=== PATIENT | female | born 1940 | race Caucasian/White ===

== ENCOUNTER 2020-08-28 20:09 | Inpatient (IN) | payer OTHER, MEDICARE ==
[2020-08-28 20:29] LABS: Absolute Lymphocytes (CBC) 7.2 K/uL (0.7-4.9); Basophils % 0.4 % (0-1.3); Hematocrit 35.3 % (36.0-45.0); Lymphocytes % 31.7 % (15.3-44.8); MPV 10.2 fL (7.6-11.3); RBC Red Blood Cell Count 3.91 M/uL (3.86-4.86)
[2020-08-28 20:42] LABS: Albumin 2.4 g/dL (3.4-5.0); Bilirubin Direct 0.3 mg/dL (0-0.2); Bilirubin Total 0.7 mg/dL (0.2-1.0); Potassium 3.6 mmol/L (3.5-5.1)
[2020-08-28] MEDS ORDERED: NA CHLORIDE 0.9% 1,000 ML ONE (21:04)
[2020-08-28] MEDS ORDERED: ONDANSETRON 4 MG/2 ML VIAL ONE (21:04)
[2020-08-28 21:10] LABS: Blood Morphology Comment NOT SEEN (NOT SEEN); Platelet Estimate ADEQ
--- NOTE | 2020-08-28 21:57 | RAD REPORT ---
EXAM DESCRIPTION: CTAbdomen Pelvis W Contrast - 08/28/2020 9:43 pm CLINICAL HISTORY: Abdominal pain. Abd pain;Nausea / vomiting COMPARISON: CT ABD PELVIS W CONTRAST dated 12/06/2013 TECHNIQUE: Biphasic CT imaging of the abdomen and pelvis was performed with 100 ml non-ionic IV cont rast. All CT scans are performed using dose optimization technique as appropriate and may include automated exposure control or mA/KV adjustment according to patient size. FINDINGS: Multiple solid-appearing left lower lobe of lesions, the largest portion measuring nearly 3.5 centimeters. Interlobular septal thickening and adjacent ground-glass airspace disease is noted. There is some fluid as well. Mild circumferential thickening of distal esophagus and small hiatal her grant. Multiple too small to characterize liver lesions which are statistically benign. These are similar to prior. Cholecystectomy. No adrenal masses. The spleen is within normal limits. No stones or hydronep hrosis. Hysterectomy. No bowel obstruction is identified. No evidence appendicitis. Abdominal aortic atherosclerosis. No retroperitoneal lymphadenopathy. Multilevel degenerative disc disease. No acute fractures are identified. IMPRESSION: 1. No acute intra-abdominal abnormality. 2. Irregular masslike opacities in the left lower lobe could reflect either pneumonia or neoplasm. Co nsider dedicated imaging of the chest.
[2020-08-28] MEDS ORDERED: NA CHLORIDE 0.9% 500 ML ONE (21:59)
[2020-08-28] MEDS ORDERED: PIPERACIL/TAZO 3.375 GM VIAL IV ONE (21:59)
[2020-08-28] MEDS ORDERED: MORPHINE 4 MG/ML SYR ONE (21:59)
[2020-08-28 22:11] LABS: Urine Blood 2+ (Negative); Urine Glucose Negative (Negative); Urine Protein 2+ (Negative); Urine Specific Gravity 1.025 (1.005-1.030)
--- NOTE | 2020-08-29 00:24 | ER ---
Nurse's Notes [facility] Name: Rachel Fenton Age: 79 yrs Sex: Female : 1940 Arrival Date: 08/28/2020 Time: 20:10 Bed 26 Private MD: Diagnosis: Abdominal pain, Generalized;Nausea;Pneumonia Presentation: 08/28 20:10 Chief complaint: EMS states: nausea x 2 days. received 2nd dose of covid vaccination on zb August 14. patient states she hasn't felt right ever since. denies fever, chills, diarrhea, abdominal pain. Coronavirus screen: At this time, the client does not indicate any symptoms associated with coronavirus-19. Ebola Screen: No symptoms or risks identified at this time. Initial Sepsis Screen: Does the patient meet any 2 criteria? No. Patient's initial sepsis screen is negative. Does the patient have a suspected source of infection? No. Patient's initial sepsis screen is negative. Risk Assessment: Do you want to hurt yourself or someone else? Patient reports no desire to harm self or others. Onset of symptoms was August 26, 2020. 20:10 Method Of Arrival: EMS: [facility] zb 20:10 Acuity: BORIS 3 zb Historical: - Allergies: 20:13 refampin; zb 20:13 Zithromax; zb - Home Meds: 20:13 atorvastatin 20 mg Oral tab 1 tab once daily [Active]; Cymbalta 60 mg Oral cpDR 1 cap zb once daily [Active]; levothyroxine 150 mcg tab 1 tab once daily [Active]; montelukast 10 mg Oral tab 1 tab once daily [Active]; Neurontin 600 mg Oral tab 1 tab 3 times per day [Active]; Seroquel 300 mg Oral tab 1 tab once daily [Active]; terbinafine HCl 250 mg Oral tab 1 tab once daily [Active]; Tylenol #3 Oral nightly [Active]; Xanax 1 mg Oral tab 1 tab daily [Active]; Zyrtec 10 mg Oral tab 1 tab once daily [Active]; - PMHx: 20:13 COPD; Hyperlipidemia; Hypothyroidism; zb - PSHx: 20:13 Appendectomy; Cholecystectomy; zb - Immunization history:: Adult Immunizations up to date, Client reports receiving the 2nd dose of the Covid vaccine, Date received: August 14, 2020. - Social history:: Smoking status: unknown. Screenin:12 Abuse screen: Denies threats or abuse. Nutritional screening: No deficits noted. ea Tuberculosis screening: No symptoms or risk factors identified. Fall Risk IV access (20 points). Assessment: 20:12 General: Appears uncomfortable, Behavior is appropriate for age. Pain: Denies pain. ea Neuro: Level of Consciousness is awake, alert, obeys commands, Oriented to person, place, time. Respiratory: Airway is patent Respiratory effort is even, unlabored, Respiratory pattern is regular, symmetrical. Derm: Skin is pink, warm \T\ dry. 21:46 Reassessment: Pt in CT. ea 23:33 Reassessment: Patient and/or family updated on plan of care and expected duration. Pain ea level reassessed. Patient is alert, oriented x 3, equal unlabored respirations, skin warm/dry/pink. 08/29 00:33 Reassessment: Patient and/or family updated on plan of care and expected duration. Pain ea level reassessed. Patient is alert, oriented x 3, equal unlabored respirations, skin warm/dry/pink. 01:00 Reassessment: Patient and/or family updated on plan of care and expected duration. Pain ea level reassessed. Patient is alert, oriented x 3, equal unlabored respirations, skin warm/dry/pink. 02:08 Reassessment: Patient and/or family updated on plan of care and expected duration. Pain ea level reassessed. Patient is alert, oriented x 3, equal unlabored respirations, skin warm/dry/pink. Pt admitted to ED hold. Vital Signs: 08/28 20:10 BP 141 / 62; Pulse 96; Resp 18; Temp 99.5; Pulse Ox 94% on R/A; Pain 0/10; zb 23:11 BP 144 / 69; Pulse 80; Resp 19; Pulse Ox 99% ; ea 08/29 02:10 Weight 77.11 kg; ea ED Course: 08/28 20:10 Patient arrived in ED. zb 20:12 Tia Harden, RN is Primary Nurse. ea 20:12 Inserted saline lock: 20 gauge in right antecubital area, using aseptic technique. ea Blood collected. 20:12 Patient has correct armband on for positive identification. Bed in low position. Call ea light in reach. Side rails up X2. 20:13 Triage completed. zb 20:13 Shahbaz Domingo MD is Attending Physician. mh7 21:43 CT Abd/Pelvis - IV Contrast Only In Process Unspecified. EDMS 22:56 Chest Single View XRAY In Process Unspecified. EDMS 08/29 00:23 Doyle Vogel MD is Hospitalizing Provider. 7 00:[address] In Process Unspecified. EDMS 02:07 No provider procedures requiring assistance completed. Patient admitted, IV remains in ea place. Administered Medications: 08/28 20:45 Drug: NS 0.9% 1000 ml Route: IV; Rate: 1000 ml; Site: right antecubital; 08/29 02:09 Follow up: IV Status: Completed infusion; IV Intake: 1000ml ea 08/28 20:45 Drug: Zofran (Ondansetron) 4 mg Route: IVP; Site: right antecubital; 08/29 02:09 Follow up: Response: No adverse reaction 08/28 21:57 Drug: morphine 4 mg Route: IVP; Site: right antecubital; ea 08/29 02:09 Follow up: Response: No adverse reaction 08/28 21:57 Drug: Zosyn (piperacillin-tazobactam) 3.375 grams Route: IVPB; Infused Over: 60 mins; ea Site: right antecubital; 23:00 Follow up: Response: No adverse reaction; IV Status: Completed infusion; IV Intake: ea 100ml 08/29 02:33 Drug: Acetadote (acetylcysteine) 150 mg/kg Route: IV; Rate: calculated rate; Site: ea right antecubital; 05:27 Drug: Acetylcysteine 100 mg/kg {Note: Administered with D5W 1L per Juan Leigh NP.} jb4 Route: IV; Rate: calculated rate; Site: right antecubital; Intake: 08/28 23:00 IV: 100ml; Total: 100ml. ea 08/29 02:09 IV: 1000ml; Total: 1100ml. ea Outcome: 00:24 Decision to Hospitalize by Provider. 7 02:07 Admitted to ER Hold. [facility]. ea 02:07 Condition: stable 02:07 Instructed on the need for admit, Demonstrated understanding of instructions. 09:02 Patient left the ED. bp Signatures: Dispatcher [employer] Milan Arriaga, RN RN jb4 Tia Harden RN Pierre Bang ea RN RN Shahbaz Urbina MD MD mh7 Tierra Loyola RN PAUL zb
--- NOTE | 2020-08-29 00:24 | EDPHYS ---
Physician Documentation [facility] Name: Rachel Fenton Age: 79 yrs Sex: Female : 1940 Arrival Date: 08/28/2020 Time: 20:10 Bed 26 Private MD: MILES Physician Shahbaz Domingo HPI: 08/28 21:10 This 79 yrs old Female presents to ER via EMS with complaints of Nausea. mh7 21:10 The patient presents to the emergency department with nausea, that is moderate. mh7 21:10 Onset: The symptoms/episode began/occurred 2 day(s) ago. mh7 21:10 Possible causes: unknown. The symptoms are aggravated by food , The symptoms are mh7 alleviated by nothing. Associated signs and symptoms: Pertinent positives: diarrhea, nausea, Pertinent negatives: abdominal pain, anorexia, belching, constipation, dysuria, fever, flatulence, GI bleeding, hematuria, vaginal discharge, vomiting. Severity of symptoms: At their worst the symptoms were moderate yesterday, in the emergency department the symptoms are unchanged. Historical: - Allergies: 20:13 refampin; zb 20:13 Zithromax; zb - Home Meds: 20:13 atorvastatin 20 mg Oral tab 1 tab once daily [Active]; Cymbalta 60 mg Oral cpDR 1 cap zb once daily [Active]; levothyroxine 150 mcg tab 1 tab once daily [Active]; montelukast 10 mg Oral tab 1 tab once daily [Active]; Neurontin 600 mg Oral tab 1 tab 3 times per day [Active]; Seroquel 300 mg Oral tab 1 tab once daily [Active]; terbinafine HCl 250 mg Oral tab 1 tab once daily [Active]; Tylenol #3 Oral nightly [Active]; Xanax 1 mg Oral tab 1 tab daily [Active]; Zyrtec 10 mg Oral tab 1 tab once daily [Active]; - PMHx: 20:13 COPD; Hyperlipidemia; Hypothyroidism; zb - PSHx: 20:13 Appendectomy; Cholecystectomy; zb - Immunization history:: Adult Immunizations up to date, Client reports receiving the 2nd dose of the Covid vaccine, Date received: August 14, 2020. - Social history:: Smoking status: unknown. ROS: 21:10 Constitutional: Negative for fever, chills, and weight loss, Eyes: Negative for injury, mh7 pain, redness, and discharge, ENT: Negative for injury, pain, and discharge, Neck: Negative for injury, pain, and swelling, Cardiovascular: Negative for chest pain, palpitations, and edema, Respiratory: Negative for shortness of breath, cough, wheezing, and pleuritic chest pain, Back: Negative for injury and pain, : Negative for injury, bleeding, discharge, and swelling, MS/Extremity: Negative for injury and deformity, Skin: Negative for injury, rash, and discoloration, Neuro: Negative for headache, weakness, numbness, tingling, and seizure, Psych: Negative for depression, anxiety, suicide ideation, homicidal ideation, and hallucinations, Allergy/Immunology: Negative for hives, rash, and allergies, Endocrine: Negative for neck swelling, polydipsia, polyuria, polyphagia, and marked weight changes, Hematologic/Lymphatic: Negative for swollen nodes, abnormal bleeding, and unusual bruising. Exam: 21:10 Constitutional: This is a well developed, well nourished patient who is awake, alert, mh7 and in no acute distress. Head/Face: Normocephalic, atraumatic. Eyes: Pupils equal round and reactive to light, extra-ocular motions intact. Lids and lashes normal. Conjunctiva and sclera are non-icteric and not injected. Cornea within normal limits. Periorbital areas with no swelling, redness, or edema. Neck: Trachea midline, no thyromegaly or masses palpated, and no cervical lymphadenopathy. Supple, full range of motion without nuchal rigidity, or vertebral point tenderness. No Meningismus. Chest/axilla: Normal chest wall appearance and motion. Nontender with no deformity. No lesions are appreciated. Cardiovascular: Regular rate and rhythm with a normal S1 and S2. No gallops, murmurs, or rubs. Normal PMI, no JVD. No pulse deficits. 21:10 Back: No spinal tenderness. No costovertebral tenderness. Full range of motion. Skin: Warm, dry with normal turgor. Normal color with no rashes, no lesions, and no evidence of cellulitis. MS/ Extremity: Pulses equal, no cyanosis. Neurovascular intact. Full, normal range of motion. Neuro: Awake and alert, GCS 15, oriented to person, place, time, and situation. Cranial nerves II-XII grossly intact. Motor strength 5/5 in all extremities. Sensory grossly intact. Cerebellar exam normal. Normal gait. Psych: Awake, alert, with orientation to person, place and time. Behavior, mood, and affect are within normal limits. 21:10 Respiratory: the patient does not display signs of respiratory distress, Respirations: normal, Breath sounds: rhonchi, that are mild, are scattered, Respiratory rate: 18 21:10 Abdomen/GI: Inspection: abdomen appears normal, obese Bowel sounds: normal, in all quadrants, Palpation: moderate abdominal tenderness, in all quadrants, mass, is not appreciated, rebound tenderness, is not appreciated, voluntary guarding, is not appreciated, involuntary guarding, is not appreciated, no appreciated organomegaly, Rectal exam: the exam is deferred, because of patient request, Indicators: McBurney's point is not tender, Bergman's sign is negative, Rovsing's sign is negative, Obturator sign is negative, Psoas sign is negative, Liver: no appreciated palpable abnormalities, Hernia: not appreciated. Vital Signs: 20:10 BP 141 / 62; Pulse 96; Resp 18; Temp 99.5; Pulse Ox 94% on R/A; Pain 0/10; zb 23:11 BP 144 / 69; Pulse 80; Resp 19; Pulse Ox 99% ; ea 08/29 02:10 Weight 77.11 kg; ea MDM: 00:20 Differential diagnosis: Nonspecific abd pain, gastritis, pancreatitis, diverticulitis, 7 viral gastroenteritis, gastroenteritis. Data reviewed: vital signs, nurses notes, lab test result(s), CBC, electrolytes, urinalysis, EKG, radiologic studies, CT scan, plain films. Data interpreted: Pulse oximetry: on room air is 99 %. Interpretation: normal. Counseling: I had a detailed discussion with the patient and/or guardian regarding: the historical points, exam findings, and any diagnostic results supporting the discharge/admit diagnosis, the presence of at least one elevated blood pressure reading (>120/80) during this emergency department visit, lab results, radiology results, the need for further work-up and treatment in the hospital. Response to treatment: the patient's symptoms have mildly improved after treatment. 00:24 Patient medically screened. [facility] 08/28 20:15 Order name: Basic Metabolic Panel; Complete Time: :05 08/28 20:15 Order name: CBC with Diff; Complete Time: 21:22 08/28 20:15 Order name: Hepatic Function; Complete Time: 21: 08/28 20:15 Order name: Lipase; Complete Time: 21:05 08/28 21:02 Order name: Manual Differential; Complete Time: 21:22 [facility] 08/28 22:10 Order name: Urine Dipstick-Ancillary; Complete Time: 22:44 [facility] 08/29 00:26 Order name: Procalcitonin; Complete Time: 02:08 08/29 00:26 Order name: Blood Culture Adult (2) 08/29 00:26 Order name: CRP; Complete Time: 02:08 08/29 00:26 Order name: Troponin (emerg Dept Use Only); Complete Time: 02:08 08/29 00:26 Order name: Lactate 08/29 00:51 Order name: SARS-COV-2 RT PCR; Complete Time: 02:08 [facility] 08/29 02:10 Order name: Acetaminophen Level [facility] 08/28 21:24 Order name: CT Abd/Pelvis - IV Contrast Only; Complete Time: 22:06 [facility] 08/28 22:07 Order name: Chest Single View XRAY [facility] 08/29 00:26 Order name: Chest Wo Con CT 08/29 03:57 Order name: Urinalysis [facility] 08/29 04:06 Order name: Urine Microscopic Only [facility] 08/29 04:42 Order name: CBC with Automated Diff [facility] 08/29 05:17 Order name: Comprehensive Metabolic Panel [facility] 08/29 05:17 Order name: T4 Free [facility] 08/29 05:17 Order name: Thyroid Stimulating Hormone [facility] 08/29 07:26 Order name: Basic Metabolic Panel [facility] 08/28 20:15 Order name: IV Saline Lock; Complete Time: 20:15 08/28 20:15 Order name: Labs collected and sent; Complete Time: 20:15 08/28 21:24 Order name: Urine Dipstick-Ancillary (obtain specimen); Complete Time: 23:31 [facility] 08/28 21:25 Order name: EKG - Nurse/Tech; Complete Time: 22:16 [facility] Administered Medications: 08/28 20:45 Drug: NS 0.9% 1000 ml Route: IV; Rate: 1000 ml; Site: right antecubital; 08/29 02:09 Follow up: IV Status: Completed infusion; IV Intake: 1000ml 08/28 20:45 Drug: Zofran (Ondansetron) 4 mg Route: IVP; Site: right antecubital; 08/29 02:09 Follow up: Response: No adverse reaction 08/28 21:57 Drug: morphine 4 mg Route: IVP; Site: right antecubital; 08/29 02:09 Follow up: Response: No adverse reaction 08/28 21:57 Drug: Zosyn (piperacillin-tazobactam) 3.375 grams Route: IVPB; Infused Over: 60 mins; ea Site: right antecubital; 23:00 Follow up: Response: No adverse reaction; IV Status: Completed infusion; IV Intake: ea 100ml 08/29 02:33 Drug: Acetadote (acetylcysteine) 150 mg/kg Route: IV; Rate: calculated rate; Site: ea right antecubital; 05:27 Drug: Acetylcysteine 100 mg/kg {Note: Administered with D5W 1L per Juan Leigh NP.} jb4 Route: IV; Rate: calculated rate; Site: right antecubital; Disposition Summary: 08/29/20 00:24 Hospitalization Ordered Hospitalization Status: Inpatient Admission [facility] Provider: Doyle Vogel Condition: Stable [facility] Problem: new 7 Symptoms: have improved mh7 Bed/Room Type: Standard [facility] Location: Telemetry/MedSurg (Inpatient)(08/29/20 07:27) Room Assignment: [facility](08/29/20 07:27) Diagnosis - Abdominal pain, Generalized 7 - Nausea mh7 - Pneumonia mh7 Forms: - Medication Reconciliation Form mh7 - SBAR form 7 Signatures: Dispatcher [employer] EDJuan Lee, CHRIS-Chrissie VALENZUELAP-Cla1 Rina Mosquera RN RN cg Bryson, James, RN RN jb4 Tia Harden RN RN ea Botello, Elizabeth eb Holmes, Maurice, MD MD mh7 Tierra Loyola RN RN zb Corrections: (The following items were deleted from the chart) 08/28 23:37 23:07 CORONAVIRUS+MR.LAB.BRZ ordered. EDMS EDMS 08/29 01:41 00:24 [place]metry/MedSurg ([place]patient) [facility] [place] 00:24 [facility] [place] 07: 01:41 [facility] eb [facility]
[2020-08-29 01:24] LABS: Troponin (Emerg Dept Use Only) < 0.02 ng/mL (0.0-0.045)
--- NOTE | 2020-08-29 02:01 | P.HP ---
Certification for Inpatient Patient admitted to: Inpatient With expected LOS: >2 Midnights Patient will require the following post-hospital care: None Practitioner: I am a practitioner with admitting privileges, knowledge of patient current condition, hospital course, and medical plan of care. Services: Services provided to patient in accordance with Admission requirements found in Title 42 Section 412.3 of the Code of Federal Regulations Patient History Date of Service: 08/29/20 Primary Care Provider: Dr. Vallejo Reason for admission: Pneumonia, Tylenol overdose History of Present Illness: 79-year-old female with history of COPD, hyperlipidemia, hypothyroidism presents the emergency department for shortness of breath, nausea. Patient reports ongoing shortness of breath over the course of the last month or so worsening in the last week as well as nausea. Patient was evaluated in the emergency department, labs were significant for white blood cell count 22.6 hemoglobin 11 point 6D bili 0.3 AST 405 ALT 307 alk phos 197 C-reactive protein 366 procalcitonin 0.37 urinalysis with trace leukocytes Covid test neg ative. ED provider called for admission for pneumonia. When I saw the patient in the emergency room she was awake, alert, oriented x3. Patient was on room air but was slightly tachypneic, dyspneic. Chest x-ray with left-sided pneumonia CT abdomen pelvis with no acute findings but did mention abnormality of the left lung base recommended CT chest. CT chest demonstrates focal area of opacity within the left posterior segment of the left lower lobes findings could correspond to pneumonia but other processes cannot be excluded. Patient also with 3 mm pulmonary nodule in the left lung apex and minimal tree-in-bud distribution and bronchial thickening inferior aspect anterior segment of the right upper lobe which could correspond to infectious or inflammatory process. Patient also admitted to taking between 4 and 5 g of Tylenol daily for many years now patient was coached on need to discontinue use of Tylenol. Poison control was contacted regarding chronic Tylenol toxicity and recommended the use of N-acetylcysteine. Allergies azithromycin [From Zithromax] Allergy (Verified 08/01/15 20:39) Hives/Rash rifampin Allergy (Verified 08/01/15 20:39) Hives/Rash refampin Allergy (Uncoded 08/01/15 21:08) Unknown Home Medications: ALPRAZolam [Xanax*] 1 tab PO DAILY 08/01/15 Atorvastatin Calcium [Lipitor*] 1 tab PO DAILY 08/01/15 Cetirizine HCl [Zyrtec*] 2 tab PO DAILY 08/01/15 Duloxetine [Cymbalta *] 3 tab PO DAILY 08/01/15 Gabapentin [Neurontin*] 6 tab PO TID 08/01/15 Montelukast [Singulair*] 1 tab PO DAILY 08/01/15 Levothyroxine Sodium 1 tab PO DAILY 08/02/15 Albuterol Sulfate [Proair Hfa] 8.5 gm IH TID PRN #1 hfa.[email or web address] 08/04/15 Budesonide/Formoterol Fumarate [Symbicort 160-4.5 Mcg Inhaler] 2 puff IH BID #1 hfa.aer.ad 08/04/15 Codeine/APAP [Tylenol W/Codeine #3 tab] 1 tab PO TID PRN #15 tab 08/04/15 Pantoprazole [Protonix Tab*] 40 mg PO DAILYAC #30 tab 08/04/15 Quetiapine [Seroquel*] 50 mg PO BEDTIME PRN #15 tab 08/04/15 predniSONE [Prednisone*] 20 mg PO BID #15 tab 08/04/15 traMADol HCL [Ultram*] 50 mg PO TID PRN #30 tab 08/04/15 - Past Medical/Surgical History Diabetic: No -: COPD -: GERD with a hiatal hernia -: Memory loss issues -: Tobacco abuse -: Alcohol use -: Tylenol abuse -: Hypothyroidism -: hysterectomy -: cholecystectomy Psychosocial/ Personal History: Patient is , lives with her son, she is retired. - Family History Mother -: Cancer Father -: Cancer - Social History Smoking Status: Former smoker Alcohol use: Yes CD- Drugs: No Caffeine use: No Place of Residence: Home Review of Systems 10-point ROS is otherwise unremarkable Respiratory: Cough, Shortness of Breath Gastrointestinal: Nausea Physical Examination - Physical Exam General: Alert, In no apparent distress, Oriented x3 HEENT: Atraumatic, PERRLA, Mucous membr. moist/pink Neck: Supple, 2+ carotid pulse no bruit, No LAD Respiratory: Normal air movement, Crackles/rales, Rhonchi/gurgles Cardiovascular: No edema, Regular rate/rhythm, Normal S1 S2 Capillary refill: <2 Seconds Gastrointestinal: Normal bowel sounds, No tenderness Musculoskeletal: No tenderness Integumentary: No rashes Neurological: Normal speech, Normal strength at 5/5 x4 extr, Normal tone, Normal affect - Studies Laboratory Data (last 24 hrs) 08/28/20 20:18: WBC 22.60 H*, Hgb 11.6 L, Hct 35.3 L, Plt Count 255 08/28/20 20:18: Sodium 140, Potassium 3.6, BUN 17, Creatinine 0.64, Glucose 98, Total Bilirubin 0.7, AST 405 H*, ALT 307 H*, Alkaline Phosphatase 197 H, Lipase 53 L Assessment and Plan - Plan Assessment: Leukocytosis, shortness of breath secondary to left-sided pneumonia complicated with history of COPD, tobacco abuse Elevated LFTs likely secondary to chronic Tylenol intake 3 mm pulmonary nodule left lung apex Hypertension Hyperlipidemia Hypothyroidism Plan: Leukocytosis, shortness of breath secondary to left-sided pneumonia complicated with history of COPD, tobacco abuse: Patient reports that she quit smoking cigarettes approximately 5 years ago, still vapes daily. Mild expiratory wheezing on exam. Patient allergic to azithromycin will continue with Levaquin, blood cultures, sputum cultures ordered. CT recommends treatment of pneumonia with follow-up imaging to rule out other processes. Pulmonology consulted for additional assistance. We will continue with as needed nebulizer treatments, IV steroids, IV antibiotics, incentive spirometry, daily room air saturations and supplemental oxygen as needed. Elevated LFTs likely secondary to chronic Tylenol intake: Patient admits to taking between 4 and 5 g of Tylenol on a daily basis, when asked for what reason she reports that she just always has. Case was discussed with poison control and as she has elevated LFTs I did recommend treatment with N-acetylcysteine which has been initiated in the emergency department. Will trend LFTs, patient with previous cholecystectomy denies any abdominal pain. Will obtain ultrasound of the liver tomorrow. Patient coached on need for cessation of Tylenol. 3 mm pulmonary nodule left lung apex: Patient made aware, will need follow-up. Hypertension: Obtain and continue home medications Hyperlipidemia: We will need to hold any statins given elevated LFTs Hypothyroidism: Continue medications DVT PPX: Lovenox Code status: Full Discharge Plan: Home Plan to discharge in: Greater than 2 days - Advance Directives Does patient have a Living Will: No Does patient have a Durable POA for Healthcare: No - Code Status/Comfort Care Code Status Assessed: Yes (Full code) Critical Care: No Time Spent Managing Pts Care (In Minutes): 55
[2020-08-29] MEDS ORDERED: MORPHINE 2 MG/ML SYR IV PRN (02:32)
[2020-08-29] MEDS ORDERED: ALBUTEROL 2.5 MG/3 ML NEB SOL NEB PRN (02:32)
[2020-08-29] MEDS ORDERED: ONDANSETRON 4 MG/2 ML VIAL IV PRN (02:32)
[2020-08-29] MEDS ORDERED: IPRATROPIUM BROM 0.5MG/2.5ML NEB PRN (02:32)
[2020-08-29] MEDS ORDERED: Acetylcysteine 6000mg/30mL IV ONE (02:38)
[2020-08-29] MEDS ORDERED: NA CHLORIDE 0.9% 250 ML ONE (02:40)
[2020-08-29 03:00] VITALS: BMI 26.6
[2020-08-29] MEDS ORDERED: Levofloxacin500mg IV 500 MG/100 ML BAG IV SCH (03:00)
[2020-08-29 03:55] LABS: Urine Appearance CLEAR (Clear); Urine Bilirubin NEGATIVE (Negative); Urine Blood 2+ (Negative); Urine Color YELLOW (Yellow); Urine Glucose NEGATIVE (Negative); Urine Protein 2+ (Negative); Urine Specific Gravity >=1.030 (1.005-1.030)
[2020-08-29 03:57] LABS: Urine Microscopic Reflex ORDER UMIC
[2020-08-29 04:05] LABS: Urine Bacteria 20-50 /HPF (<20); Urine Mucus 2+ /HPF (NONE SEEN)
[2020-08-29] MEDS ORDERED: Levofloxacin500mg IV 500 MG/100 ML BAG IV ONE (04:16)
[2020-08-29 04:32] LABS: Basophils % 0.3 % (0-1.3); Hematocrit 34.6 % (36.0-45.0); Lymphocytes % 30.1 % (15.3-44.8); MPV 9.7 fL (7.6-11.3); RBC Red Blood Cell Count 3.75 M/uL (3.86-4.86)
--- NOTE | 2020-08-29 04:50 | RAD REPORT ---
EXAM DESCRIPTION: Vladimir Single View08/28/2020 10:56 pm CLINICAL HISTORY: Cough COMPARISON: 2016 FINDINGS: Left lower lobe consolidation. Right lung appears clear acute infiltrate. Lungs are hyperaerated The heart is normal size IMPRESSION: Left lower lobe consolidation consistent pneumonia. This should be followed until it is clear to help exclude post obstructive process/underlying mass
[2020-08-29 05:16] LABS: Albumin 2.2 g/dL (3.4-5.0); Bilirubin Total 0.6 mg/dL (0.2-1.0); Potassium 3.3 mmol/L (3.5-5.1); Protein, Total 6.6 g/dL (6.4-8.2); Thyroid Stimulating Hormone 0.998 uIU/mL (0.360-3.740)
[2020-08-29] MEDS ORDERED: ACETYLCYST 6,000 MG/30 ML VIAL ONE (05:28)
[2020-08-29] MEDS ORDERED: D5W 1,000 ML IV ONE (05:29)
--- NOTE | 2020-08-29 06:06 | P.PN ---
Subjective Date of Service: 08/29/20 Primary Care Provider: Dr. Vallejo Chief Complaint: Pneumonia, Tylenol overdose Subjective: Other (Patient currently on 2 L per nasal cannula. Patient desires to go home. Still with some mild shortness of breath) Physical Examination - Studies Laboratory Data (last 24 hrs) 08/28/20 20:18: WBC 22.60 H*, Hgb 11.6 L, Hct 35.3 L, Plt Count 255 08/28/20 20:18: Sodium 140, Potassium 3.6, BUN 17, Creatinine 0.64, Glucose 98, Total Bilirubin 0.7, AST 405 H*, ALT 307 H*, Alkaline Phosphatase 197 H, Lipase 53 L Assessment & Plan Discharge Plan: Home Plan to discharge in: Greater than 2 days Physician Review Additional Text: COVID: Negative CXR: COMPARISON: 2015 FINDINGS: Left lower lobe consolidation. Right lung appears clear acute infiltrate. Lungs are hyperaerated The heart is normal size IMPRESSION: Left lower lobe consolidation consistent pneumonia. CT scan AB: COMPARISON: CT ABD PELVIS W CONTRAST dated 12/06/2013 TECHNIQUE: Biphasic CT imaging of the abdomen and pelvis was performed with 100 ml non-ionic IV contrast. All CT scans are performed using dose optimization technique as appropriate and may include automated exposure control or mA/KV adjustment according to patient size. FINDINGS: Multiple solid-appearing left lower lobe of lesions, the largest portion measuring nearly 3.5 centimeters. Interlobular septal thickening and adj acent ground-glass airspace disease is noted. There is some fluid as well. Mild circumferential thickening of distal esophagus and small hiatal hernia. Multiple too small to characterize liver lesions which are statistically benign. These are similar to prior. Cholecystectomy. No adrenal masses. The spleen is within normal limits. No stones or hydronephrosis. Hysterectomy. No bowel obstruction is identified. No evidence appendicitis. Abdominal aortic atherosclerosis. No retroperitoneal lymphadenopathy. Multilevel degenerative disc disease. No acute fractures are identified. IMPRESSION: 1. No acute intra-abdominal abnormality. 2. Irregular masslike opacities in the left lower lobe could reflect either pneumonia or neoplasm. ABUS: Pending CT chest: Final results pending Physical exam: General: Alert, In no apparent distress, Oriented x3, some anxiety noted HEENT: Atraumatic, PERRLA, Mucous membr. moist/pink Neck: Supple, 2+ carotid pulse no bruit, No LAD Respiratory: Crackles with decreased breath sounds to the left base Cardiovascular: No edema, Regular rate/rhythm, Normal S1 S2 Capillary refill: <2 Seconds Gastrointestinal: Normal bowel sounds, No tenderness Musculoskeletal: No tenderness Integumentary: No rashes Neurological: Normal speech, Normal strength at 5/5 x4 extr, Normal tone, Normal affect. Patient appropriate. Some anxiety noted. Impression: Leukocytosis, shortness of breath secondary to left-sided pneumonia complicated with history of COPD, UTI and tobacco abuse Elevated LFTs likely secondary to chronic Tylenol intake and other medications including Lipitor and terbinafine 3 mm pulmonary nodule left lung apex Hyperlipidemia Hypothyroidism Depression with anxiety Tobacco abuse Plan: Leukocytosis, shortness of breath secondary to left-sided pneumonia complicated with COPD exacerbation, UTI and tobacco abuse: Continue IV Levaquin. Blood and urine cultures pending. Will start IV Solu-Medrol for her COPD. Will also start Brovana. Continue with albuterol and Atrovent. Continue to wean off oxygen. Await CT chest findings. Patient on Lovenox for DVT prophylaxis. Will provide nicotine patch. Encourage incentive spirometer. Patient desires to go home. She is not in any condition to go home. Will try to reach out to family to discuss plan of care. Patient being treated for chronic Tylenol intake. Patient to continue with Mucomyst. Restart medication for anxiety. We will con tinue to monitor closely. Anticipate improvement over the next 72 hours. Elevated LFTs likely secondary to chronic Tylenol intake and other medications including Lipitor and terbinafine: Case discussed with poison control. Due to elevated liver function patient started on Mucomyst. Will continue with Mucomyst treatment. Discontinue Tylenol with codeine, Lipitor, terbinafine. Will monitor liver function test. They appear to be improved. Abdominal ultrasound pending. Will educate on cessation of medications. 3 mm pulmonary nodule left lung apex: Patient made aware, will need follow-up. Await recommendations by pulmonology. Hyperlipidemia: Discontinue Lipitor due to elevated liver function Hypothyroidism: Continue levothyroxine 150 mcg daily Depression with anxiety: Restart Xanax, Cymbalta and Seroquel. Tobacco abuse: We will provide nicotine patch. DVT PPX: Lovenox Code status: Full Discharge Plan: Home at discharge Time Spent Managing Pts Care (In Minutes): 55
[2020-08-29] MEDS ORDERED: QUETIAPINE 100MG TAB PO PRN (06:25)
[2020-08-29] MEDS ORDERED: LEVOTHYROXINE SOD 0.05 MG TABLET PO SCH (07:00)
[2020-08-29 07:26] LABS: Potassium 3.5 mmol/L (3.5-5.1)
[2020-08-29] MEDS: ARFORMOTEROL TARTRATE 15 MCG/2 ML VIAL.NEB NEB SCH ×2 (07:50→19:50)
[2020-08-29] MEDS ORDERED: DEXTROSE 5% IV SCH ×4 (08:00→16:00)
[2020-08-29] MEDS ORDERED: ACETYLCYSTEINE IV SCH ×4 (08:00→16:00)
[2020-08-29] MEDS ORDERED: WATER IV SCH ×4 (08:00→16:00)
[2020-08-29] MEDS ORDERED: ARFORMOTEROL TARTRATE 15 MCG/2 ML VIAL.NEB ONE (08:02)
[2020-08-29] MEDS: ENOXAPARIN 40 MG/0.4 ML SQ SCH (09:50)
[2020-08-29] MEDS: DULOXETINE 30 MG CAP PO SCH (09:51)
[2020-08-29] MEDS: MONTELUKAST 10 MG TAB PO SCH (09:52)
--- NOTE | 2020-08-29 11:06 | RAD REPORT ---
EXAM DESCRIPTION: US - Abdomen Exam Limited - 08/29/2020 8:25 am CLINICAL HISTORY: Elevated liver function test enzymes/abdominal pain COMPARISON: None. FINDINGS: A cholecystectomy has been performed. The biliary tree is normal caliber. The liver has a borderline increased echotexture. Lesion is not seen. A pedal flow IMPRESSION: Cholecystectomy Borderline increased hepatic echotexture equivocal for mild fatty infiltration
[2020-08-29] MEDS: Levofloxacin 750mg IV 750 MG/150 ML BAG IV SCH (11:34)
--- NOTE | 2020-08-29 13:04 | RAD REPORT ---
EXAM DESCRIPTION: CT - Thorax Con - 08/29/2020 6:41 am CLINICAL HISTORY: 79 years, Female, abn CXR COMPARISON: None FINDINGS: Multiple transaxial tomograms of the chest were obtained from the lung apices through the adrenal glands, utilizing 5 mm slice thickness at 5 mm interval reconstruction without the administra tion of IV contrast. Multiplanar reformats in the sagittal and coronal plane were generated and reviewed. This exam was performed according to our departmental dose-optimization protocol, which includes auto mated exposure control, adjustment of the mA and/or kV according to patient size and/or use of iterat mandy reconstruction technique. The lungs parenchyma demonstrate presence of a 3 mm pulmonary nodule left lung apex on image 13. Smal l area of the atelectatic changes superior segment of the left lower lobe and focal area of opacity w ithin the posterior segment of the left lower lobe findings could correspond to pneumonia, other proc esses cannot be excluded, follow-up is recommended after appropriate therapy. At the right lung demonstrate minimal nodularities/tree-in-bud distribution and bronchial thickening inferior aspect anterior segment of the right upper lobe on image 32. The trachea mainstem bronchus demonstrate to be normal. There is no significant pleural and/or perica rdial effusions. The heart is normal in size. There is minimal coronary artery calcifications. The thoracic aorta demonstrate intimal aortic arch calcification. There is subclinical precarinal lymph n ode measuring 8 mm on image 24. No significant major lymphadenopathy could be identified. The axillar y regions demonstrate to be clear. The bone windows demonstrate diffuse bony osteopenia. No signifi cant skeletal lesions are identified. Grossly the unopacified portions of the upper abdomen demonstrate to be within normal limits. IMPRESSION: Small area of atelectatic changes superior segment of the left lower. Focal area of opacity within the posterior segment of the left lower lobe findings could correspond t o pneumonia, other processes cannot be excluded, follow-up is recommended after appropriate therapy. 3 mm pulmonary nodule left lung apex. Minimal nodularities/tree-in-bud distribution and bronchial thickening inferior aspect anterior segme nt of the right upper lobe, findings could correspond to infectious or inflammatory process. Minimal atherosclerotic disease thoracic aorta and coronary arteries. Electronically signed by: Naun Quevedo MD 08/29/2020 1:07 AM CDT Due to temporary technical issues with the PACS/Fluency reporting system, reports are being signed by the in house radiologists without review as a courtesy to insure prompt reporting. The interpreting radiologist is fully responsible for the content of the report.
--- NOTE | 2020-08-29 14:51 | P.CNS ---
Date of Consult: 08/29/20 (TV. Pt agreed to TV) Reason for Consult: LLL pneumonia Primary Care Provider: Dr. Vallejo Chief Complaint: Pneumonia, Tylenol overdose History of Present Illness: Age 79 poor historian AW LLL pneumonia and poss tylenol OD, Wants to go home,c/o nausea Allergies azithromycin [From Zithromax] Allergy (Verified 08/01/15 20:39) Hives/Rash rifampin Allergy (Verified 08/01/15 20:39) Hives/Rash refampin Allergy (Uncoded 08/01/15 21:08) Unknown Home Medications: ALPRAZolam [Xanax*] 1 tab PO DAILY 08/01/15 Atorvastatin Calcium [Lipitor*] 1 tab PO DAILY 08/01/15 Cetirizine HCl [Zyrtec*] 10 mg PO DAILY 08/01/15 Duloxetine [Cymbalta *] 60 mg PO DAILY 08/01/15 Gabapentin [Neurontin*] 600 mg PO TID 08/01/15 Montelukast [Singulair*] 1 tab PO DAILY 08/01/15 Levothyroxine Sodium 1 tab PO DAILY 08/02/15 Codeine/APAP [Tylenol W/Codeine #3 tab] 1 tab PO TID PRN #15 tab 08/04/15 Quetiapine [Seroquel*] 300 mg PO BEDTIME PRN 08/29/20 terbinafine HCL [Terbinafine HCl] 250 mg PO DAILY 08/29/20 - Past Medical/Surgical History Diabetic: No -: COPD -: GERD with a hiatal hernia -: Memory loss issues -: Tobacco abuse -: Alcohol use -: Tylenol abuse -: Hypothyroidism -: hysterectomy -: cholecystectomy Psychosocial/ Personal History: Patient is , lives with her son, she is retired. - Family History Mother Medical History: Cancer Father Medical History: Cancer - Social History Smoking Status: Unknown if ever smoked Alcohol use: No CD- Drugs: No Caffeine use: Yes Place of Residence: Home Review of Systems Genitourinary: Dysuria Physical Examination Temp Pulse Resp BP Pulse Ox 97.6 F 89 18 124/60 94 08/29/20 12:00 08/29/20 12:00 08/29/20 12:00 08/29/20 12:00 08/29/20 12:00 Laboratory Data (last 24 hrs) 08/28/20 20:18: WBC 22.60 H*, Hgb 11.6 L, Hct 35.3 L, Plt Count 255 08/28/20 20:18: Sodium 140, Potassium 3.6, BUN 17, Creatinine 0.64, Glucose 98, Total Bilirubin 0.7, AST 405 H*, ALT 307 H*, Alkaline Phosphatase 197 H, Lipase 53 L - Problems (1) Pneumonia Current Visit: Yes Status: Acute Plan: PT AW LLL pneumonia, DC Change to Levaquin PO/ labs reviewed/ check daily RA pulse OX, once LFT have improved poss DC home after completion of mucomyst and levaquin/ CT rev Qualifiers: Pneumonia type: due to unspecified organism Laterality: left (2) Abnormal LFTs Current Visit: Yes Status: Acute Plan: Poss Tyelonol toxicity Vs sepsis/ CW mucomyst/ LFT improving/ VS stable.US mild fatty liver
[2020-08-29] MEDS ORDERED: METHYLPREDNISOLONE 40 MG INJ IV SCH (17:00)
[2020-08-29] MEDS: FAMOTIDINE 20 MG TAB PO SCH (20:32)
[2020-08-29] MEDS ORDERED: POTASSIUM CL SA 10 MEQ TAB PO ONE (21:00)
[2020-08-30] MEDS: ALPRAZOLAM 1 MG TABLET PO PRN ×2 (00:19→22:32)
[2020-08-30] MEDS: LEVOTHYROXINE SOD 0.075 MG TAB PO SCH (05:52)
[2020-08-30 05:54] LABS: Basophils % 0.4 % (0-1.3); Lymphocytes % 39.6 % (15.3-44.8); MPV 9.7 fL (7.6-11.3); RBC Red Blood Cell Count 3.75 M/uL (3.86-4.86)
--- NOTE | 2020-08-30 05:55 | P.PN ---
Subjective Date of Service: 08/30/20 Primary Care Provider: Dr. Vallejo Chief Complaint: Pneumonia, Tylenol overdose Subjective: Improving, Other (Currently on 1 L per nasal cannula.) Physical Examination - Vital Signs Temperature: 98.4 F Blood Pressure: 120/55 Pulse: 62 Respirations: 16 Pulse Ox (%): 98 Assessment & Plan Discharge Plan: Home Plan to discharge in: 48 Hours Physician Review Additional Text: COVID: Negative CXR: COMPARISON: 2015 FINDINGS: Left lower lobe consolidation. Right lung appears clear acute infiltrate. Lungs are hyperaerated The heart is normal size IMPRESSION: Left lower lobe consolidation consistent pneumonia. CT scan AB: COMPARISON: CT ABD PELVIS W CONTRAST dated 12/06/2013 TECHNIQUE: Biphasic CT imaging of the abdomen and pelvis was performed with 100 ml non-ionic IV contrast. All CT scans are performed using dose optimization technique as appropriate and may include automated exposure control or mA/KV adjustment according to patient size. FINDINGS: Multiple solid-appearing left lower lobe of lesions, the largest portion measuring nearly 3.5 centimeters. Interlobular septal thickening and adjacent ground-glass airspace disease is noted. There is some fluid as well. Mild circumferential thickening of distal esophagus and small hiatal hernia. Multiple too small to characterize liver lesions which are statistically benign. These are similar to prior. Cholecystectomy. No adrenal masses. The spleen is within normal limits. No stones or hydronephrosis. Hysterectomy. No bowel obstruction is identified. No evidence appendicitis. Abdominal aortic atherosclerosis. No retroperitoneal lymphadenopathy. Multilevel degenerative disc disease. No acute fractures are identified. IMPRESSION: 1. No acute intra-abdominal abnormality. 2. Irregular masslike opacities in the left lower lobe could reflect either pneumonia or neoplasm. ABUS: COMPARISON: None. FINDINGS: A cholecystectomy has been performed. The biliary tree is normal caliber. The liver has a borderline increased echotexture. Lesion is not seen. A pedal flow IMPRESSION: Cholecystectomy Borderline increased hepatic echotexture equivocal for mild fatty infiltration CT chest: COMPARISON: None FINDINGS: Multiple transaxial tomograms of the chest were obtained from the lung apices through the adrenal glands, utilizing 5 mm slice thickness at 5 mm interval reconstruction without the administration of IV contrast. Multiplanar reformats in the sagittal and coronal plane were generated and reviewed. This exam was performed according to our departmental dose-optimization protocol, which includes automated exposure control, adjustment of the mA and/or kV according to patient size and/or use of iterative reconstruction technique. The lungs parenchyma demonstrate presence of a 3 mm pulmonary nodule left lung apex on image 13. Small area of the atelectatic changes superior segment of the left lower lobe and focal area of opacity within the posterior segment of the left lower lobe findings could correspond to pneumonia, other processes cannot be excluded, follow-up is recommended after appropriate therapy. At the right lung demonstrate minimal nodularities/tree-in-bud distribution and bronchial thickening inferior aspect anterior segment of the right upper lobe on image 32. The trachea mainstem bronchus demonstrate to be normal. There is no significant pleural and/or pericardial effusions. The heart is normal in size. There is minimal coronary artery calcifications. The thoracic aorta demonstrate intimal aortic arch calcification. There is subclinical precarinal lymph node measuring 8 mm on image 24. No significant major lymphadenopathy could be identified. The axillary regions demonstrate to be clear. The bone windows demonstrate diffuse bony osteopenia. No significant skeletal lesions are identified. Grossly the unopacified portions of the upper abdomen demonstrate to be within normal limits. IMPRESSION: Small area of atelectatic changes superior segment of the left lower. Focal area of opacity within the posterior segment of the left lower lobe findings could correspond to pneumonia, other processes cannot be excluded, follow-up is recommended after appropriate therapy. 3 mm pulmonary nodule left lung apex. Minimal nodularities/tree-in-bud distribution and bronchial thickening inferior aspect anterior segment of the right upper lobe, findings could correspond to infectious or inflammatory process. Minimal atherosclerotic disease thoracic aorta and coronary arteries. Follow up CXR: COMPARISON: Chest Single View dated 08/28/2020; Chest Pa And Lat (2 Views) dated 09/02/2015; Chest Pa And Lat (2 Views) dated 08/02/2015; Chest Single View dated 08/01/2015; Thorax Wo Con dated 08/29/2020; Abdomen Pelvis W Contrast dated 08/28/2020 FINDINGS: Persistent ill-defined airspace disease in the left lung base. The heart size is within normal limits.No acute osseous abnormality. No significant pleural effusions or pneumothorax. Atherosclerosis for IMPRESSION: Left lower lobe consolidative airspace disease concerning for pneumonia is similar to 08/28/2020. Other processes not excluded and continued radiographic or CT follow-up is recommended to ensure resolution Physical exam: General: Alert, In no apparent distress, Oriented x3, some anxiety noted HEENT: Atraumatic, PERRLA, Mucous membr. moist/pink Neck: Supple, 2+ carotid pulse no bruit, No LAD Respiratory: Crackles with decreased breath sounds to the left base but overall improved. Currently on 1 L per nasal cannula Cardiovascular: No edema, Regular rate/rhythm, Normal S1 S2 Capillary refill: <2 Seconds Gastrointestinal: Normal bowel sounds, No tenderness Musculoskeletal: No tenderness Integumentary: No rashes Neurological: Normal speech, Normal strength at 5/5 x4 extr, Normal tone, Normal affect. Patient appropriate. Some anxiety noted. Impression: Leukocytosis, shortness of breath secondary to left-sided pneumonia complicated with history of COPD, UTI and tobacco abuse Elevated LFTs likely secondary to chronic Tylenol intake and other medications including Lipitor and terbinafine 3 mm pulmonary nodule left lung apex Hyperlipidemia Hypothyroidism Depression with anxiety Tobacco abuse Plan: Leukocytosis, shortness of breath secondary to left-sided pneumonia complicated with COPD exacerbation, UTI and tobacco abuse: Patient reports improvement. Continue IV Levaquin. Blood and urine cultures pending. Pulmonology recommended to discontinue Solu-Medrol yesterday. Continue with COPD treatment including Brovana, albuterol, Atrovent. Continue to wean off oxygen. DVT prophylaxis in place. Will follow chest x-ray, lab. LFTs reviewed. Poison control recommends to continue another round of Mucomyst. We will continue with this as recommended. Will monitor liver function tests closely. Case discussed with son. Anticipate continued improvement over the next 72 hours. I will turn the service over to the hospitalist team tomorrow. I will go over the plan of care with him Elevated LFTs likely secondary to chronic Tylenol intake and other medications including Lipitor and terbinafine: Patient has received Mucomyst. Nurse reports poison control recommends another round of Mucomyst. This will be provided. Continue to monitor liver function test closely. Tylenol with codeine, Lipitor and terbinafine has been discontinued. Will monitor closely. Will educate patient. 3 mm pulmonary nodule left lung apex: Patient made aware, will need follow-up. Await recommendations by pulmonology. Hyperlipidemia: Lipitor has been discontinued. Hypothyroidism: Continue levothyroxine 150 mcg daily Depression with anxiety: Continue Xanax, Cymbalta and Seroquel. Tobacco abuse: Continue nicotine patch. DVT PPX: Lovenox Code status: Full Discharge Plan: Home at discharge Time Spent Managing Pts Care (In Minutes): 55
[2020-08-30 06:36] LABS: Alkaline Phosphatase 191 U/L (45-117); BUN Blood Urea Nitrogen 11 mg/dL (7-18); Bicarbonate 29 mmol/L (21-32); Bilirubin Total 0.4 mg/dL (0.2-1.0); Glucose Level 97 mg/dL (74-106); Magnesium 1.7 mg/dL (1.8-2.4); Potassium 3.2 mmol/L (3.5-5.1); Protein, Total 6.1 g/dL (6.4-8.2); Sodium Level 141 mmol/L (136-145)
[2020-08-30 06:37] LABS: ALT/SGPT 337 U/L (12-78); AST/SGOT 337 U/L (15-37)
--- NOTE | 2020-08-30 07:39 | RAD REPORT ---
EXAM DESCRIPTION: RAD - Chest Single View - 08/30/2020 6:49 am CLINICAL HISTORY: eval pneumonia COMPARISON: Chest Single View dated 08/28/2020; Chest Pa And Lat (2 Views) dated 09/02/2015; Chest Pa And Lat (2 Views) dated 08/02/2015; Chest Single View dated 08/01/2015; Thorax Wo Con dated 08/29/2020; Abdomen Pelvis W Contrast dated 08/28/2020 FINDINGS: Persistent ill-defined airspace disease in the left lung base. The heart size is within no rmal limits.No acute osseous abnormality. No significant pleural effusions or pneumothorax. Atheroscl erosis for IMPRESSION: Left lower lobe consolidative airspace disease concerning for pneumonia is similar to . Other processes not excluded and continued radiographic or CT follow-up is recommended to maddy rodriguez
[2020-08-30] MEDS: ARFORMOTEROL TARTRATE 15 MCG/2 ML VIAL.NEB NEB SCH ×2 (07:50→19:20)
[2020-08-30] MEDS ORDERED: MAGNESIUM SULFATE 1 gm IVPB 1 GM/100 ML BAG IV ONE (09:00)
[2020-08-30] MEDS ORDERED: POTASSIUM CL SA 10 MEQ TAB PO ONE ×2 (09:00→21:00)
[2020-08-30] MEDS: Levofloxacin 750mg IV 750 MG/150 ML BAG IV SCH (10:54)
[2020-08-30] MEDS: FAMOTIDINE 20 MG TAB PO SCH ×2 (10:55→20:56)
[2020-08-30] MEDS: ENOXAPARIN 40 MG/0.4 ML SQ SCH (10:55)
[2020-08-30] MEDS: THIAMINE HCL 100 MG TABLET PO SCH (10:55)
[2020-08-30] MEDS: DULOXETINE 30 MG CAP PO SCH (10:56)
[2020-08-30] MEDS: MONTELUKAST 10 MG TAB PO SCH (10:56)
[2020-08-30] MEDS: FOLIC ACID 1 MG TABLET PO SCH (10:56)
--- NOTE | 2020-08-30 15:21 | P.PN ---
Subjective Date of Service: 08/30/20 Primary Care Provider: Dr. Vallejo Chief Complaint: Well Subjective: Improving (Condition stable/ improving. WBC declining) Physical Examination - Vital Signs Temperature: 98.7 F Blood Pressure: 136/66 Pulse: 93 Respirations: 20 Pulse Ox (%): 94 - Studies Microbiology Data (last 24 hrs): 08/28/20 20:32 Blood - Blood Blood Culture Gram Stain - Final 08/28/20 20:12 Blood - Blood Gram Stain - Final 08/28/20 20:12 Blood - Blood Gram Stain - Final Assessment & Plan - Problems (Diagnosis) (1) Pneumonia Current Visit: Yes Status: Acute Plan: Improving WBC declining/ Culture non diagnostic so far. WBC declining/ VS stable/ plan for dc am on levaquin/ rA sat satisfactory Qualifiers: Pneumonia type: due to unspecified organism Laterality: left (2) Abnormal LFTs Current Visit: Yes Status: Acute Plan: LFT no sig change Physician Review Additional Text: COVID: Negative CXR: COMPARISON: 2015 FINDINGS: Left lower lobe consolidation. Right lung appears clear acute infiltrate. Lungs are hyperaerated The heart is normal size IMPRESSION: Left lower lobe consolidation consistent pneumonia. CT scan AB: COMPARISON: CT ABD PELVIS W CONTRAST dated 12/06/2013 TECHNIQUE: Biphasic CT imaging of the abdomen and pelvis was performed with 100 ml non-ionic IV contrast. All CT scans are performed using dose optimization technique as appropriate and may include automated exposure control or mA/KV adjustment according to patient size. FINDINGS: Multiple solid-appearing left lower lobe of lesions, the largest portion measuring nearly 3.5 centimeters. Interlobular septal thickening and adjacent ground-glass airspace disease is noted. There is some fluid as well. Mild circumferential thickening of distal esophagus and small hiatal hernia. Multiple too small to characterize liver lesions which are statistically benign. These are similar to prior. Cholecystectomy. No adrenal masses. The spleen is within normal limits. No stones or hydronephrosis. Hysterectomy. No bowel obstruction is identified. No evidence appendicitis. Abdominal aortic atherosclerosis. No retroperitoneal lymphadenopathy. Multilevel degenerative disc disease. No acute fractures are identified. IMPRESSION: 1. No acute intra-abdominal abnormality. 2. Irregular masslike opacities in the left lower lobe could reflect either pneumonia or neoplasm. ABUS: COMPARISON: None. FINDINGS: A cholecystectomy has been performed. The biliary tree is normal caliber. The liver has a borderline increased echotexture. Lesion is not seen. A pedal flow IMPRESSION: Cholecystectomy Borderline increased hepatic echotexture equivocal for mild fatty infiltration CT chest: COMPARISON: None FINDINGS: Multiple transaxial tomograms of the chest were obtained from the lung apices through the adrenal glands, utilizing 5 mm slice thickness at 5 mm interval reconstruction without the administration of IV contrast. Multiplanar reformats in the sagittal and coronal plane were generated and reviewed. This exam was performed according to our departmental dose-optimization protocol, which includes automated exposure control, adjustment of the mA and/or kV according to patient size and/or use of iterative reconstruction technique. The lungs parenchyma demonstrate presence of a 3 mm pulmonary nodule left lung apex on image 13. Small area of the atelectatic changes superior segment of the left lower lobe and focal area of opacity within the posterior segment of the left lower lobe findings could correspond to pneumonia, other processes cannot be excluded, follow-up is recommended after appropriate therapy. At the right lung demonstrate minimal nodularities/tree-in-bud distribution and bronchial thickening inferior aspect anterior segment of the right upper lobe on image 32. The trachea mainstem bronchus demonstrate to be normal. There is no significant pleural and/or pericardial effusions. The heart is normal in size. There is minimal coronary artery calcifications. The thoracic aorta demonstrate intimal aortic arch calcification. There is subclinical precarinal lymph node measuring 8 mm on image 24. No significant major lymphadenopathy could be identified. The axillary regions demonstrate to be clear. The bone windows demonstrate diffuse bony osteopenia. No significant skeletal lesions are identified. Grossly the unopacified portions of the upper abdomen demonstrate to be within normal limits. IMPRESSION: Small area of atelectatic changes superior segment of the left lower. Focal area of opacity within the posterior segment of the left lower lobe findings could correspond to pneumonia, other processes cannot be excluded, follow-up is recommended after appropriate therapy. 3 mm pulmonary nodule left lung apex. Minimal nodularities/tree-in-bud distribution and bronchial thickening inferior aspect anterior segment of the right upper lobe, findings could correspond to infectious or inflammatory process. Minimal atherosclerotic disease thoracic aorta and coronary arteries. Follow up CXR: COMPARISON: Chest Single View dated 08/28/2020; Chest Pa And Lat (2 Views) dated 09/02/2015; Chest Pa And Lat (2 Views) dated 08/02/2015; Chest Single View dated 08/01/2015; Thorax Wo Con dated 08/29/2020; Abdomen Pelvis W Contrast dated 08/28/2020 FINDINGS: Persistent ill-defined airspace disease in the left lung base. The heart size is within normal limits.No acute osseous abnormality. No significant pleural effusions or pneumothorax. Atherosclerosis for IMPRESSION: Left lower lobe consolidative airspace disease concerning for pneumonia is similar to 08/28/2020. Other processes not excluded and continued radiographic or CT follow-up is recommended to ensure resolution Physical exam: General: Alert, In no apparent distress, Oriented x3, some anxiety noted HEENT: Atraumatic, PERRLA, Mucous membr. moist/pink Neck: Supple, 2+ carotid pulse no bruit, No LAD Respiratory: Crackles with decreased breath sounds to the left base but overall improved. Currently on 1 L per nasal cannula Cardiovascular: No edema, Regular rate/rhythm, Normal S1 S2 Capillary refill: <2 Seconds Gastrointestinal: Normal bowel sounds, No tenderness Musculoskeletal: No tenderness Integumentary: No rashes Neurological: Normal speech, Normal strength at 5/5 x4 extr, Normal tone, Normal affect. Patient appropriate. Some anxiety noted. Impression: Leukocytosis, shortness of breath secondary to left-sided pneumonia complicated with history of COPD, UTI and tobacco abuse Elevated LFTs likely secondary to chronic Tylenol intake and other medications including Lipitor and terbinafine 3 mm pulmonary nodule left lung apex Hyperlipidemia Hypothyroidism Depression with anxiety Tobacco abuse Plan: Leukocytosis, shortness of breath secondary to left-sided pneumonia complicated with COPD exacerbation, UTI and tobacco abuse: Patient reports improvement. Continue IV Levaquin. Blood and urine cultures pending. Pulmonology recommended to discontinue Solu-Medrol yesterday. Continue with COPD treatment including Brovana, albuterol, Atrovent. Continue to wean off oxygen. DVT prophylaxis in place. Will follow chest x-ray, lab. LFTs reviewed. Poison control recommends to continue another round of Mucomyst. We will continue with this as recommended. Will monitor liver function tests closely. Case discussed with son. Anticipate continued improvement over the next 72 hours. I will turn the service over to the hospitalist team tomorrow. I will go over the plan of care with him Elevated LFTs likely secondary to chronic Tylenol intake and other medications including Lipitor and terbinafine: Patient has received Mucomyst. Nurse reports poison control recommends another round of Mucomyst. This will be provided. Continue to monitor liver function test closely. Tylenol with codeine, Lipitor and terbinafine has been discontinued. Will monitor closely. Will educate patient. 3 mm pulmonary nodule left lung apex: Patient made aware, will need follow-up. Await recommendations by pulmonology. Hyperlipidemia: Lipitor has been discontinued. Hypothyroidism: Continue levothyroxine 150 mcg daily Depression with anxiety: Continue Xanax, Cymbalta and Seroquel. Tobacco abuse: Continue nicotine patch. DVT PPX: Lovenox Code status: Full Discharge Plan: Home at discharge
[2020-08-30] MEDS ORDERED: ACETYLCYSTEINE IV SCH ×3 (16:00→17:00)
[2020-08-30] MEDS ORDERED: D5W IV SCH ×2 (16:00→17:00)
[2020-08-30] MEDS ORDERED: NA CHLORIDE 0.9% IV SCH (17:00)
[2020-08-31] MEDS: LEVOTHYROXINE SOD 0.075 MG TAB PO SCH (05:26)
[2020-08-31 06:24] LABS: Absolute Lymphocytes (CBC) 7.3 K/uL (0.7-4.9); Basophils % 0.7 % (0-1.3); Hematocrit 34.1 % (36.0-45.0); Lymphocytes % 43.4 % (15.3-44.8); MPV 9.2 fL (7.6-11.3); RBC Red Blood Cell Count 3.74 M/uL (3.86-4.86)
[2020-08-31 06:35] LABS: Alkaline Phosphatase 180 U/L (45-117); BUN Blood Urea Nitrogen 10 mg/dL (7-18); Bicarbonate 29 mmol/L (21-32); Bilirubin Total 0.5 mg/dL (0.2-1.0); Glucose Level 96 mg/dL (74-106); Magnesium 1.8 mg/dL (1.8-2.4); Potassium 3.5 mmol/L (3.5-5.1); Sodium Level 140 mmol/L (136-145)
[2020-08-31 06:37] LABS: ALT/SGPT 415 U/L (12-78); AST/SGOT 357 U/L (15-37)
[2020-08-31] MEDS: FOLIC ACID 1 MG TABLET PO SCH (08:46)
[2020-08-31] MEDS: THIAMINE HCL 100 MG TABLET PO SCH (08:46)
[2020-08-31] MEDS: FAMOTIDINE 20 MG TAB PO SCH (08:46)
[2020-08-31] MEDS: MONTELUKAST 10 MG TAB PO SCH (08:46)
[2020-08-31] MEDS: DULOXETINE 30 MG CAP PO SCH (08:47)
[2020-08-31] MEDS: ENOXAPARIN 40 MG/0.4 ML SQ SCH (08:48)
[2020-08-31] MEDS ORDERED: POTASSIUM CL SA 10 MEQ TAB PO ONE (09:00)
[2020-08-31] MEDS ORDERED: MAGNESIUM SULFATE 1 gm IVPB 1 GM/100 ML BAG IV ONE (09:00)
[2020-08-31 09:14] LABS: Protime INR 1.27
[2020-08-31 09:28] VITALS: O2SAT 95
[2020-08-31] MEDS: Levofloxacin 750mg IV 750 MG/150 ML BAG IV SCH (09:38)
[2020-08-31 09:51] LABS: Albumin 2.2 g/dL (3.4-5.0); Bilirubin Direct 0.2 mg/dL (0-0.2); Bilirubin Total 0.5 mg/dL (0.2-1.0); Protein, Total 6.4 g/dL (6.4-8.2)
[2020-08-31 12:32] VITALS: BP 133/84; TEMP 97.6
--- NOTE | 2020-08-31 13:09 | P.DS ---
Discharge Date: 08/31/20 Primary Care Provider: Dr. Vallejo Disposition: ROUTINE DISCHARGE Discharge Condition: GOOD Reason for Admission: Well Brief History of Present Illness: Patient is a 79-year-old female with history of COPD, hyperlipidemia, hypothyroidism presents the emergency department for shortness of breath, nausea. Patient reports ongoing shortness of breath over the course of the last month or so worsening in the last week as well as nausea. Patient was evaluated in the emergency department, labs were significant for white blood cell count 22.6 hemoglobin 11 point 6D bili 0.3 AST 405 ALT 307 alk phos 197 C-reactive protein 366 procalcitonin 0.37 urinalysis with trace leukocytes Covid test negative. ED provider called for admission for pneumonia. When I saw the patient in the emergency room she was awake, alert, oriented x3. Patient was on room air but was slightly tachypneic, dyspneic. Chest x-ray with left-sided pneumonia CT abdomen pelvis with no acute findings but did mention abnormality of the left lung base recommended CT chest. CT chest demonstrates focal area of opacity within the left posterior segment of the left lower lobes findings could correspond to pneumonia but other processes cannot be excluded. Patient also with 3 mm pulmonary nodule in the left lung apex and minimal tree-in-bud distribution and bronchial thickening inferior aspect anterior segment of the right upper lobe which could correspond to infectious or inflammatory process. Patient also admitted to taking between 4 and 5 g of Tylenol daily for many years now patient was coached on need to discontinue use of Tylenol. Poison control was contacted regarding chronic Tylenol toxicity and recommended the use of N-acetylcysteine. Hospital Course: Patient was treated with N-acetylcysteine. Patient's liver function testing has stabilized. Patient has been on antibiotics in his pneumonia is better. Clinically, patient is doing much better. At this time, patient is stable for discharge home. Vital Signs/Physical Exam: Temp Pulse Resp BP Pulse Ox 97.6 F 80 18 133/84 95 08/31/20 12:00 08/31/20 12:00 08/31/20 12:00 08/31/20 12:00 08/31/20 12:00 General: Alert, In no apparent distress, Oriented x3 Laboratory Data at Discharge: WBC 16.80 K/uL (4.3-10.9) H 08/31/20 06:03 Hgb 11.4 g/dL (12.0-15.0) L 08/31/20 06:03 Hct 34.1 % (36.0-45.0) L 08/31/20 06:03 Plt Count 320 K/uL (152-406) 08/31/20 06:03 PT 14.6 SECONDS (9.5-12.5) H 08/31/20 08:34 INR 1.27 08/31/20 08:34 APTT 24.4 SECONDS (24.3-36.9) 08/31/20 08:34 Sodium 140 mmol/L (136-145) 08/31/20 06:03 Potassium 3.5 mmol/L (3.5-5.1) 08/31/20 06:03 BUN 10 mg/dL (7-18) 08/31/20 06:03 Creatinine 0.56 mg/dL (0.55-1.3) 08/31/20 06:03 Glucose 96 mg/dL (74-106) 08/31/20 06:03 Magnesium 1.8 mg/dL (1.8-2.4) 08/31/20 06:03 Total Bilirubin 0.5 mg/dL (0.2-1.0) 08/31/20 08:34 AST 361 U/L (15-37) H* 08/31/20 08:34 ALT 444 U/L (12-78) H* 08/31/20 08:34 Alkaline Phosphatase 197 U/L (45-117) H 08/31/20 08:34 Lipase 53 U/L (73-393) L 08/28/20 20:18 Home Medications: ALPRAZolam [Xanax*] 1 tab PO DAILY 08/01/15 Atorvastatin Calcium [Lipitor*] 1 tab PO DAILY 08/01/15 Cetirizine HCl [Zyrtec*] 10 mg PO DAILY 08/01/15 Duloxetine [Cymbalta *] 60 mg PO DAILY 08/01/15 Gabapentin [Neurontin*] 600 mg PO TID 08/01/15 Montelukast [Singulair*] 1 tab PO DAILY 08/01/15 Levothyroxine Sodium 1 tab PO DAILY 08/02/15 Codeine/APAP [Tylenol #3*] 1 tab PO TID PRN #15 tab 08/04/15 Quetiapine [Seroquel*] 300 mg PO BEDTIME PRN 08/29/20 terbinafine HCL [Terbinafine HCl] 250 mg PO DAILY 08/29/20 Arformoterol Tartrate [Brovana] 15 mcg NEB BIDRESP #60 vial.neb 08/31/20 Ipratropium Neb [Atrovent*] 0.5 mg NEB [id number] PRN #60 amp 08/31/20 Levofloxacin [Levaquin] 500 mg PO DAILY #7 tablet 08/31/20 New Medications: Ipratropium Neb [Atrovent*] 0.5 mg NEB [id number] PRN #60 amp PRN Reason: Wheezing Arformoterol Tartrate [Brovana] 15 mcg NEB BIDRESP #60 vial.neb Levofloxacin [Levaquin] 500 mg PO DAILY #7 tablet Physician Discharge Instructions: OK TO DC IV AND DC HOME FOLLOW-UP WITH PRIMARY CARE PROVIDER IN 1 week to monitor liver function testing FOLLOW-UP WITH category development manager IN 1-2 WEEKS RETURN TO THE ER IF symptoms worsen CALL or TEXT DR. CARRANZA AT [phone] IF ANY QUESTIONS REGARDING HOSPITAL STAY. PLEASE CALL THE FLOOR AT [phone] IF ANY MEDICATION OR NURSING QUESTIONS. Diet: Regular Activity: Fall precautions Followup: MICHELLE MARTINEZ [Primary Care Provider] - Time spent managing pt's care (in minutes): 35
--- NOTE | 2020-09-01 12:42 | EKG ---
Test Date: 2020-08-28 Test Time: 22:02:30 Certified Drug Counselor: RACHEL MEASUREMENT RESULTS: Intervals: Rate: 94 WV: 128 QRSD: 70 QT: 346 QTc: 432 [place]: P: 66 WV: 128 QRS: 64 T: 75 INTERPRETIVE STATEMENTS: Sinus rhythm with occasional premature ventricular complexes Otherwise normal ECG Compared to ECG 09/02/2015 18:40:22 Ventricular premature complex(es) now present Sinus tachycardia no longer present Electronically Signed On 09-01-20 12:37:58 CDT by Tian Haynes
== END 2020-08-31 14:40 | disposition home or self-care (01) | DRG 190 ==
LOC: ER 20:09 → ERHOLD 08-29 01:12 → 2ND 08-29 08:37
PROVIDERS: ADMIT Family Medicine; ATTEND Family Medicine
DX: J44.0 Chronic obstructive pulmonary disease with (acute) lower respiratory infection (principal); J18.9 Pneumonia, unspecified organism; N39.0 Urinary tract infection, site not specified; J44.1 Chronic obstructive pulmonary disease with (acute) exacerbation; R91.1 Solitary pulmonary nodule; E78.5 Hyperlipidemia, unspecified; E03.9 Hypothyroidism, unspecified; R94.5 Abnormal results of liver function studies; T39.1X5A Adverse effect of 4-Aminophenol derivatives, initial encounter; Y92.009 Unspecified place in unspecified non-institutional (private) residence as the place of occurrence of the external cause; F41.8 Other specified anxiety disorders; F17.210 Nicotine dependence, cigarettes, uncomplicated; Z20.822 Contact with and (suspected) exposure to COVID-19
CPT/HCPCS: 36415; 71045; 71250; 74177; 76705; 80048; 80053; 80076; 80329; 81003; 81015; 83605; 83690; 83735; 84132; 84145; 84439; 84443; 84484; 85025; 85384; 85610; 85730; 86140; 87040; 87077; 87086; 87088; 87186; 87205; 87804; 93005; 94010; 96361; 96365; 96375; 97116; 97162; 97530; 99285; J0132; J1650; J2270; J2405; J2543; J2920; J3475; J7030; J7040; J7050; J7060; J7605; Q9967; U0003

== ENCOUNTER 2020-09-02 15:08 | Inpatient (IN) | payer OTHER, MEDICARE ==
[2020-09-02] MEDS ORDERED: LORazepam 2 MG/ML VIAL ONE (16:01)
[2020-09-02 16:10] LABS: Absolute Lymphocytes (CBC) 12.2 K/uL (0.7-4.9); Basophils % 0.4 % (0-1.3); Hematocrit 40.6 % (36.0-45.0); Lymphocytes % 41.5 % (15.3-44.8); MPV 9.4 fL (7.6-11.3); Protime INR 1.29; RBC Red Blood Cell Count 4.48 M/uL (3.86-4.86)
--- NOTE | 2020-09-02 16:28 | RAD REPORT ---
EXAM DESCRIPTION: RAD - Chest Single View - 09/02/2020 4:16 pm CLINICAL HISTORY: AMS COMPARISON: Chest Single View dated 08/30/2020; Chest Single View dated 08/28/2020; Chest Pa And Lat ( 2 Views) dated 09/02/2015; Chest Pa And Lat (2 Views) dated 08/02/2015 FINDINGS: Similar to mild worsening in the left basilar airspace disease. The heart size is within n ormal limits.No acute osseous abnormality. No significant pleural effusions or pneumothorax. IMPRESSION: Similar to mild increased airspace disease at the left lung base which remains concernin g for pneumonia.
[2020-09-02 16:33] LABS: ALT/SGPT 252 U/L (12-78); AST/SGOT 90 U/L (15-37); Albumin 2.8 g/dL (3.4-5.0); Alkaline Phosphatase 198 U/L (45-117); BUN Blood Urea Nitrogen 16 mg/dL (7-18); Bicarbonate 29 mmol/L (21-32); Bilirubin Direct 0.2 mg/dL (0-0.2); Bilirubin Total 0.7 mg/dL (0.2-1.0); Glucose Level 101 mg/dL (74-106); Magnesium 1.9 mg/dL (1.8-2.4); NT PRO-BNP 3121 pg/mL (<450); Potassium 3.7 mmol/L (3.5-5.1); Protein, Total 6.7 g/dL (6.4-8.2); Sodium Level 139 mmol/L (136-145); Troponin (Emerg Dept Use Only) < 0.02 ng/mL (0.0-0.045)
[2020-09-02 16:51] LABS: Urine Blood 2+ (Negative); Urine Glucose Negative (Negative); Urine Protein 3+ (Negative); Urine Specific Gravity >=1.030 (1.005-1.030)
--- NOTE | 2020-09-02 17:22 | RAD REPORT ---
EXAM DESCRIPTION: CT - [id number] - 09/02/2020 5:06 pm CLINICAL HISTORY: Trauma, head and neck injury. AMS, fall COMPARISON: Head C Spine Mpr Wo Con dated 08/01/2015 TECHNIQUE: Axial 5 mm thick images of the head were obtained. Axial 2 mm thick images of the cervical spine were obtained with sagittal and coronal reconstruction images generated and reviewed. All CT scans are performed using dose optimization technique as appropriate and may include automated exposure control or mA/KV adjustment according to patient size. FINDINGS: CT HEAD WITHOUT CONTRAST: No acute hemorrhage, hydrocephalus or extra-axial collection is identified.No areas of brain edema or midline shift. The paranasal sinuses and mastoids are clear.The calvarium is intact. CT CERVICAL SPINE WITHOUT CONTRAST: Multilevel cervical spondylosis with varying degrees of neural foraminal narrowing. There is trace re trolisthesis of C5 on C6 and C6 on C7. There is some motion artifact at C1-2 which mildly limits eval uation and simulates the appearance of a fracture.No prevertebral soft tissues swelling is identified . IMPRESSION: No acute intracranial abnormality. No fracture or traumatic malalignment of the cervical spine.
[2020-09-02 17:35] LABS: Barbiturates NEGATIVE (NEGATIVE); Benzodiazepines NEGATIVE (NEGATIVE); Cocaine NEGATIVE (NEGATIVE); METHAMPHETAM NEGATIVE (NEGATIVE); Methadone NEGATIVE (NEGATIVE); Opiates NEGATIVE (NEGATIVE); Phencyclidine NEGATIVE (NEGATIVE); THC Cannibis NEGATIVE (NEGATIVE)
[2020-09-02 17:50] LABS: Urine Bacteria <20 /HPF (<20); Urine RBC <5 /HPF (NONE SEEN)
[2020-09-02] MEDS ORDERED: CEFEPIME/SWI 1gm 10 ML ONE (17:51)
[2020-09-02] MEDS ORDERED: VANCOMYCIN 1 GM/VIAL ONE (17:51)
[2020-09-02] MEDS ORDERED: NA CHLORIDE 0.9% 250 ML ONE (17:51)
[2020-09-02] MEDS ORDERED: NA CHLORIDE 0.9% 1,000 ML ONE (17:51)
--- NOTE | 2020-09-02 17:54 | ER ---
Nurse's Notes [facility] Name: Rachel Fenton Age: 79 yrs Sex: Female : 1940 Arrival Date: 09/02/2020 Time: 15:16 Bed 5 Private MD: Diagnosis: Pneumonia in diseases classified elsewhere;Altered mental status, unspecified Presentation: 09/02 15:21 Chief complaint: EMS states: Family reports frequent falls and worsening confusion over hb the last few days, found down in hallway agitated and altered today. GCS 10, SpO2 95% on RA, T 99.6, BGL 98, 20g LAC. Coronavirus screen: At this time, the client does not indicate any symptoms associated with coronavirus-19. Ebola Screen: No symptoms or risks identified at this time. Risk Assessment: Do you want to hurt yourself or someone else? Patient reports no desire to harm self or others. Onset of symptoms is unknown. 15:21 Method Of Arrival: EMS: [facility] 15:21 Acuity: BORIS 2 hb Triage Assessment: 15:26 General: Appears distressed, Behavior is agitated, uncooperative. Pain: Unable to use hb pain scale. Does not appear to understand pain scale. EENT: No deficits noted. No signs and/or symptoms were reported regarding the EENT system. Neuro: Level of Consciousness is alert, confused, Oriented to none. Cardiovascular: Patient's skin is warm and dry. Rhythm is regular. Respiratory: Respiratory effort is even, unlabored, Respiratory pattern is regular, symmetrical. GI: No signs and/or symptoms were reported involving the gastrointestinal system. : No signs and/or symptoms were reported regarding the genitourinary system. Derm: Skin is pink, warm \\T\\ dry. Musculoskeletal: No signs and/or symptoms reported regarding the musculoskeletal system. Historical: - Allergies: 15:25 refampin; hb 15:25 Zithromax; hb - Home Meds: 15:25 atorvastatin 20 mg Oral tab 1 tab once daily [Active]; Cymbalta 60 mg Oral cpDR 1 cap hb once daily [Active]; levothyroxine 150 mcg tab 1 tab once daily [Active]; montelukast 10 mg Oral tab 1 tab once daily [Active]; Neurontin 600 mg Oral tab 1 tab 3 times per day [Active]; Seroquel 300 mg Oral tab 1 tab once daily [Active]; terbinafine HCl 250 mg Oral tab 1 tab once daily [Active]; Tylenol #3 Oral nightly [Active]; Xanax 1 mg Oral tab 1 tab daily [Active]; Zyrtec 10 mg Oral tab 1 tab once daily [Active]; - PMHx: 15:25 Hyperlipidemia; COPD; Hypothyroidism; hb - PSHx: 15:25 Appendectomy; Cholecystectomy; hb - Immunization history:: Adult Immunizations up to date. - Social history:: Smoking status: Patient denies any tobacco usage or history of. Screenin:26 Abuse screen: Denies threats or abuse. Denies injuries from another. Nutritional hb screening: No deficits noted. Tuberculosis screening: No symptoms or risk factors identified. Fall Risk Total Lyon Fall Scale indicates High Risk Score (45 or more points). Fall prevention measures have been instituted. Side Rails Up X 2 Frequent Obs/Assessments Occuring Family Present and informed to notify staff if the need to leave the bedside As available patient and family educated on Fall Prevention Program and Strategies. Assessment: 15:26 General: see triage. hb 17:00 Reassessment: No changes from previously documented assessment. Patient and/or family hb updated on plan of care and expected duration. Pain level reassessed. Family remains at bedside. 18:10 Reassessment: Patient appears in no apparent distress at this time. No changes from hb previously documented assessment. Patient and/or family updated on plan of care and expected duration. Pain level reassessed. Vital Signs: 15:21 BP 177 / 89; Pulse 82; Resp 20; Temp 99; Pulse Ox 95% on R/A; hb 17:00 BP 158 / 88; Pulse 107; Resp 38; Pulse Ox 95% on R/A; hb 18:10 BP 149 / 94; Pulse 89; Resp 32; Pulse Ox 100% on 2 lpm NC; hb [place] Coma Score: 15:25 Eye Response: spontaneous(4). Verbal Response: incomprehensible(2). Motor Response: hb withdraws from pain(4). Total: 10. ED Course: 15:00 Maintain EMS IV. Dressing intact. Good blood return noted. Site clean \\T\\ dry. hb 15:16 Patient arrived in ED. am2 15:21 Page, Leland, PA is PHCP. cp 15:21 Renan Vogel MD is Attending Physician. cp 15:24 Triage completed. hb 15:25 Arm band placed on. hb 15:26 Patient has correct armband on for positive identification. Bed in low position. Call hb light in reach. Side rails up X2. 16:09 COVID-19 : Document "Date of Symptom Onset" if Symptomatic. Sent. hb 16:16 XRAY Chest (1 view) In Process Unspecified. EDMS 16:42 Hernandez cath inserted, using sterile technique, [address], balloon inflated, to hb gravity drainage, urine specimen collected. returned clear yellow urine. 16:44 Leesa Mayes, PAUL is Primary Nurse. hb 17:13 CT Head C Spine In Process Unspecified. EDMS 17:53 Dolores Mars MD is Hospitalizing Provider. cp 17:59 Inserted saline lock: 22 gauge in left forearm, using aseptic technique. ,using aseptic hb technique. by Francisco. 21:21 No provider procedures requiring assistance completed. Patient admitted, IV remains in ea place. Administered Medications: 15:36 Drug: Ativan (LORazepam) 0.5 mg Route: IVP; Site: left antecubital; ss 16:09 Follow up: Response: No change in condition hb 16:09 Drug: Ativan (LORazepam) 0.5 mg Route: IVP; Site: left antecubital; hb 17:00 Follow up: Response: No adverse reaction hb 17:15 Drug: Cefepime 1 grams Route: IVPB; Rate: 200 ml/hr; Infused Over: 30 mins; Site: left hb antecubital; 17:15 Follow up: IV Status: Completed infusion; IV Intake: 10ml hb 18:00 Follow up: Response: No adverse reaction hb 17:35 Drug: NS 0.9% 1000 ml Route: IV; Rate: 100 ml/hr; Site: left forearm; hb 21:21 Follow up: IV Status: Infusion continued upon admission ea 18:00 Drug: vancoMYCIN 1 grams Route: IVPB; Infused Over: 2 hrs; Site: left forearm; hb 21:22 Follow up: Response: No adverse reaction; IV Status: Completed infusion ea Intake: 17:15 IV: 10ml; Total: 10ml. hb Outcome: 17:54 Decision to Hospitalize by Provider. cp 21:21 Admitted to Med/surg accompanied by nurse, via stretcher, on monitor, Report called to ea Receiving nurse on second floor 21:21 Condition: stable 21:21 Instructed on the need for admit. 21:21 Patient left the ED. ea Signatures: Dispatcher [employer] EDAlla Banda, RN RN Leland Patricia PA PA cp Baxter, Heather, RN RN Zoë Lim [facility] Tia Harden RN RN ea Corrections: (The following items were deleted from the chart) 15:27 15:21 BP 167 / 111; Pulse 82bpm; Resp 20bpm; Pulse Ox 95% RA; Temp 99F; hb hb
--- NOTE | 2020-09-02 17:54 | EDPHYS ---
Physician Documentation [facility] Name: Rachel Fenton Age: 79 yrs Sex: Female : 1940 Arrival Date: 09/02/2020 Time: 15:16 Bed 5 Private MD: ED Physician Renan Vogel HPI: 09/02 15:35 This 79 yrs old Female presents to ER via EMS with complaints of Altered cp Mental Status. 15:35 The patient presents with agitation, decreased mental status. Onset: The cp symptoms/episode began/occurred at an unknown time. 15:35 Possible causes: unknown. Associated signs and symptoms: Pertinent negatives: fever. cp Current symptoms: In the emergency department the patient's symptoms have worsened. Patient's baseline: Neuro: alert and fully oriented, Motor: no deficits, Ambulation: walks without assistance, Speech: normal. Historical: - Allergies: 15:25 refampin; hb 15:25 Zithromax; hb - Home Meds: 15:25 atorvastatin 20 mg Oral tab 1 tab once daily [Active]; Cymbalta 60 mg Oral cpDR 1 cap hb once daily [Active]; levothyroxine 150 mcg tab 1 tab once daily [Active]; montelukast 10 mg Oral tab 1 tab once daily [Active]; Neurontin 600 mg Oral tab 1 tab 3 times per day [Active]; Seroquel 300 mg Oral tab 1 tab once daily [Active]; terbinafine HCl 250 mg Oral tab 1 tab once daily [Active]; Tylenol #3 Oral nightly [Active]; Xanax 1 mg Oral tab 1 tab daily [Active]; Zyrtec 10 mg Oral tab 1 tab once daily [Active]; - PMHx: 15:25 Hyperlipidemia; COPD; Hypothyroidism; hb - PSHx: 15:25 Appendectomy; Cholecystectomy; hb - Immunization history:: Adult Immunizations up to date. - Social history:: Smoking status: Patient denies any tobacco usage or history of. ROS: 15:40 Neuro: Positive for altered mental status. cp 15:40 Constitutional: Negative for fever. cp 15:40 Unable to obtain ROS due to altered mental status. cp Exam: 15:45 Constitutional: The patient appears alert, awake, non-diaphoretic, non-toxic, well cp developed, well nourished. 15:45 Head/Face: Normocephalic, atraumatic. cp 15:45 Eyes: Pupils: equal, round, and reactive to light and accomodation, Conjunctiva: normal, no exudate, no injection, Sclera: no appreciated abnormality, Lids and lashes: appear normal, bilaterally. 15:45 ENT: External ear(s): are unremarkable, Ear canal(s): are normal, clear, TM's: dullness, bilaterally, Nose: is normal, Mouth: Lips: dry, Oral mucosa: moist, Posterior pharynx: Airway: no evidence of obstruction, patent. 15:45 Neck: ROM/movement: is normal, is supple, no meningismus, no nuchal rigidity. 15:45 Chest/axilla: Inspection: normal, Palpation: is normal, no crepitus, no tenderness. 15:45 Cardiovascular: Rate: normal, Rhythm: regular, Edema: is not appreciated, JVD: is not appreciated. 15:45 Respiratory: the patient does not display signs of respiratory distress, Respirations: labored breathing, is not present, shallow respirations, that is mild, Breath sounds: decreased breath sounds, that are mild, throughout. 15:45 Abdomen/GI: Inspection: abdomen appears normal, Palpation: abdomen is soft and non-tender, in all quadrants, rebound tenderness, is not appreciated, involuntary guarding, is not appreciated. 15:45 Back: pain, is absent, ROM is normal. 15:45 Skin: cellulitis, is not appreciated, no rash present. 15:45 Neuro: Orientation: Not oriented to person, place, situation, Mentation: unable to follow commands, Motor: moves all fours, strength is normal. 18:09 ECG was reviewed by the Attending Physician. cp Vital Signs: 15:21 BP 177 / 89; Pulse 82; Resp 20; Temp 99; Pulse Ox 95% on R/A; hb 17:00 BP 158 / 88; Pulse 107; Resp 38; Pulse Ox 95% on R/A; hb 18:10 BP 149 / 94; Pulse 89; Resp 32; Pulse Ox 100% on 2 lpm NC; hb [place] Coma Score: 15:25 Eye Response: spontaneous(4). Verbal Response: incomprehensible(2). Motor Response: hb withdraws from pain(4). Total: 10. MDM: 15:30 Patient medically screened. 17:30 Data reviewed: vital signs, nurses notes, lab test result(s), EKG, radiologic studies, cp CT scan, plain films. 17:30 Response to treatment: There is no appreciated change of the patient's symptoms at this cp time, no change in mental status, and as a result, I will admit patient. 17:45 Physician consultation: Dolores Mars MD was called at 17:30, was contacted at 17:30, regarding admission, to the telemetry unit. patient's condition. 09/02 15:32 Order name: Basic Metabolic Panel 09/02 15:32 Order name: CBC with Diff 09/02 15:32 Order name: LFT's 09/02 15:32 Order name: Magnesium 09/02 15:32 Order name: NT PRO-BNP; Complete Time: 16:48 09/02 16:48 Interpretation: Abnormal: NT PRO-BNP 3121. 09/02 15:32 Order name: PT-INR; Complete Time: 16:28 09/02 16:29 Interpretation: Abnormal: PT 14.9. 09/02 15:32 Order name: Troponin (emerg Dept Use Only); Complete Time: 16:48 09/02 15:32 Order name: AMMONIA; Complete Time: 16:28 09/02 16:28 Interpretation: Abnormal: LARISA 11. 09/02 15:32 Order name: Lactate; Complete Time: 16:28 09/02 15:32 Order name: Procalcitonin; Complete Time: 17:23 09/02 17:23 Interpretation: Abnormal: Procalcitonin 0.09. 09/02 15:32 Order name: UDS 09/02 15:32 Order name: Blood Culture Adult (2) 09/02 15:32 Order name: Basic Metabolic Panel; Complete Time: 16:48 EDMS 09/02 16:49 Interpretation: Normal except: GFR 78. 09/02 15:32 Order name: CBC with Automated Diff EDDE 09/02 16:29 Interpretation: Normal except: HCT 40.6; PLT 413; NEUT A 15.5; LYMA 12.2; MNA 1.6. 09/02 15:32 Order name: XRAY Chest (1 view); Complete Time: 16:48 09/02 15:32 Order name: CT Head C Spine; Complete Time: 17:23 09/02 15:32 Order name: Liver (Hepatic) Function; Complete Time: 16:48 EDDE 09/02 17:24 Interpretation: Normal except: AST 90; ALT 252; ALK 198; ALB 2.8; A/G 0.7; GLOB 3.9. 09/02 15:32 Order name: Magnesium; Complete Time: 16:48 EDDE 09/02 15:33 Order name: COVID-19 : Document "Date of Symptom Onset" if Symptomatic. 09/02 16:02 Order name: Acetaminophen; Complete Time: 17:23 ss 09/02 16:48 Order name: ABG 09/02 16:50 Order name: Urine Microscopic Only 09/02 17:13 Order name: Urine Dipstick-Ancillary; Complete Time: 17:23 EDDE 09/02 17:19 Order name: Urine Microscopic Only [facility] 09/02 17:20 Order name: SARS-COV-2 RT PCR; Complete Time: 17:23 EDDE 09/02 19:44 Order name: Manual Differential [facility] 09/02 15:32 Order name: EKG; Complete Time: 15:33 09/02 15:32 Order name: Cardiac monitoring; Complete Time: 16:45 09/02 15:32 Order name: EKG - Nurse/Tech; Complete Time: 18:11 09/02 15:32 Order name: IV Saline Lock; Complete Time: 16:45 09/02 15:32 Order name: Labs collected and sent; Complete Time: 16:45 09/02 15:32 Order name: O2 Per Protocol; Complete Time: 15:34 09/02 15:32 Order name: O2 Sat Monitoring; Complete Time: 15:34 cp EC:09 Rate is 96 beats/min. Rhythm is regular. CA interval is normal. QRS interval is normal. cp QT interval is normal. T waves are Inverted in leads aVL, aVR. Interpreted by me. Reviewed by me. Administered Medications: 15:36 Drug: Ativan (LORazepam) 0.5 mg Route: IVP; Site: left antecubital; ss 16:09 Follow up: Response: No change in condition hb 16:09 Drug: Ativan (LORazepam) 0.5 mg Route: IVP; Site: left antecubital; hb 17:00 Follow up: Response: No adverse reaction hb 17:15 Drug: Cefepime 1 grams Route: IVPB; Rate: 200 ml/hr; Infused Over: 30 mins; Site: left hb antecubital; 17:15 Follow up: IV Status: Completed infusion; IV Intake: 10ml hb 18:00 Follow up: Response: No adverse reaction hb 17:35 Drug: NS 0.9% 1000 ml Route: IV; Rate: 100 ml/hr; Site: left forearm; hb 21:21 Follow up: IV Status: Infusion continued upon admission ea 18:00 Drug: vancoMYCIN 1 grams Route: IVPB; Infused Over: 2 hrs; Site: left forearm; hb 21:22 Follow up: Response: No adverse reaction; IV Status: Completed infusion ea Disposition: 18:15 Chart complete. cp Disposition Summary: 09/02/20 17:54 Hospitalization Ordered Hospitalization Status: Inpatient Admission cp Provider: Dolores Mars cp Location: Telemetry/[facility] (Inpatient) cp Condition: Stable cp Problem: new cp Symptoms: are unchanged cp Bed/Room Type: Standard cp Room Assignment: 215(09/02/20 20:36) tl1 Diagnosis - Pneumonia in diseases classified elsewhere cp - Altered mental status, unspecified cp Forms: - Medication Reconciliation Form cp - SBAR form cp Addendum: 09/05/2020 07:04 Co-signature as Attending Physician, Renan Vogel MD I agree with the assessment and r n plan of care. Attestation: The patient's history, exam findings, diagnostics, and a summary of any interventions or procedures was reviewed in detail with Leland VALADEZ. Signatures: Dispatcher [employer] EDDE Renan Vogel MD MD rn Smirch, Shelby, RN RN Esme Jimenez RN RN tl1 Leland Patricia PA PA cp Leesa Mayes RN RN hb Antunez, Elena RN ea Corrections: (The following items were deleted from the chart) 09/02 16:10 15:34 CORONAVIRUS ordered. EDMS EDMS 16:29 16:28 Normal except: HCT 40.6. cp cp 18:59 18:29 Head Angio+CT.RAD.BRZ ordered. EDMS EDMS 18:59 18:29 Neck Angio+CT.RAD.BRZ ordered. EDMS EDMS 20:36 17:54 cp tl1
[2020-09-02 17:57] LABS: Arterial Blood Carboxyhemoglob 0.9 % (0-1.5); Blood Gas Oxyhemoglobin 94.1 % (94-97)
--- NOTE | 2020-09-02 19:28 | P.HP ---
Certification for Inpatient Patient admitted to: Inpatient With expected LOS: >2 Midnights Patient will require the following post-hospital care: None Practitioner: I am a practitioner with admitting privileges, knowledge of patient current condition, hospital course, and medical plan of care. Services: Services provided to patient in accordance with Admission requirements found in Title 42 Section 412.3 of the Code of Federal Regulations Patient History Date of Service: 09/02/20 Primary Care Provider: Dr. Vallejo Reason for admission: Pneumonia, altered mental status History of Present Illness: 79-year-old female with history of hyperlipidemia, COPD, hypothyroidism presents emergency department for altered mental status. Patient with recent admission for left-sided pneumonia was treated with Zosyn and discharged a few days prior. Family reports at home patient has been very weak with multiple falls, not acting herself, not eating and drinking well. [id number] reports that last night patient was groaning all night, today when she went to check on her she found her laying on the floor groaning, patie nt currently nonverbal but groaning, will make eye contact but not speaking. Not following any verbal commands at this time. Patient was evaluated in the emergency department CT head C-spine negative for any acute findings chest x-ray redemonstrates pneumonia similar to previous. Labs were significant for white blood cell count 29.4 procalcitonin 0.09 BNP 3121 ammonia 11 AST 90 ALT 252 alk phos 198, these are stable from previous. Patient with chronic Tylenol abuse/overdose which has been discontinued. Patient was previously treated with N-acetylcysteine. Urinalysis negative for signs of infection Covid test negative. UDS also negative, patient is prescribed long-term benzodiazepine therapy, there is a question of benzodiazepine withdrawal, patient was given Ativan 0.5 mg x 2 in the emergency department which did not seem to relieve symptoms. ED progress is to admit for further evaluation and management. Allergies azithromycin [From Zithromax] Allergy (Verified 08/01/15 20:39) Hives/Rash rifampin Allergy (Verified 08/01/15 20:39) Hives/Rash refampin Allergy (Uncoded 08/01/15 21:08) Unknown Home Medications: ALPRAZolam [Xanax*] 1 tab PO DAILY 08/01/15 Atorvastatin Calcium [Lipitor*] 1 tab PO DAILY 08/01/15 Cetirizine HCl [Zyrtec*] 10 mg PO DAILY 08/01/15 Duloxetine [Cymbalta *] 60 mg PO DAILY 08/01/15 Gabapentin [Neurontin*] 600 mg PO TID 08/01/15 Montelukast [Singulair*] 1 tab PO DAILY 08/01/15 Levothyroxine Sodium 1 tab PO DAILY 08/02/15 Codeine/APAP [Tylenol #3*] 1 tab PO TID PRN #15 tab 08/04/15 Quetiapine [Seroquel*] 300 mg PO BEDTIME PRN 08/29/20 terbinafine HCL [Terbinafine HCl] 250 mg PO DAILY 08/29/20 Arformoterol Tartrate [Brovana] 15 mcg NEB BIDRESP #60 vial.neb 08/31/20 Ipratropium Neb [Atrovent*] 0.5 mg NEB [id number] PRN #60 amp 08/31/20 Levofloxacin [Levaquin] 500 mg PO DAILY #7 tablet 08/31/20 - Past Medical/Surgical History Diabetic: No -: COPD -: GERD with a hiatal hernia -: Memory loss issues -: Tobacco abuse -: Alcohol use -: Tylenol abuse -: Hypothyroidism -: hysterectomy -: cholecystectomy Psychosocial/ Personal History: Patient is , lives with her son, she is retired. - Family History Mother -: Cancer Father -: Cancer - Social History Alcohol use: No CD- Drugs: No Caffeine use: Yes Review of Systems is unable to be obtained Physical Examination - Physical Exam General: Other (Patient lying in bed, eyes closed moaning constantly, not following any verbal commands. Appears encephalopathic.) HEENT: Atraumatic Neck: Supple Respiratory: Clear to auscultation bilaterally, Normal air movement Cardiovascular: No edema Capillary refill: <2 Seconds Gastrointestinal: Normal bowel sounds Musculoskeletal: No contractures, No erythema, No tenderness Integumentary: No significant lesion, No tenderness/swelling, No erythema Neurological: Other (Not following commands, moaning), Abnormal affect Lymphatics: No axilla or inguinal lymphadenopathy - Studies Laboratory Data (last 24 hrs) 09/02/20 15:50: PT 14.9 H, INR 1.29 09/02/20 15:50: WBC 29.40 H* D, Hgb 13.1, Hct 40.6 D, Plt Count 413 H D 09/02/20 15:50: Sodium 139, Potassium 3.7, BUN 16, Creatinine 0.72, Glucose 101, Magnesium 1.9, Total Bilirubin 0.7, AST 90 H D, ALT 252 H D, Alkaline Phosphatase 198 H Assessment and Plan - Plan Assessment: Acute metabolic encephalopathy likely secondary to pneumonia versus possible benzodiazepine withdrawal Leukocytosis, recurrent left-sided pneumonia Hyperlipidemia COPD Hypothyroidism Elevated aminotransferase levelshistory of chronic Tylenol abuse Plan: Acute metabolic encephalopathy likely secondary to pneumonia versus possible benzodiazepine withdrawal: Blood cultures and sputum cultures obtained, patient not following any commands at this time, CT head without contrast negative for any acute findings. Unable to obtain CT angiogram as patient is moving around constantly. Will provide patient with as needed Ativan for agitation/possible benzodiazepine withdrawal, family reports patient has been on Xanax for many years and she cannot find her prescription at home, not sure if she has been taking it ever since she got out of the hospital. More likely related to infectious process as well as a count is 29. Have also ordered speech/physical therapy consults and an MRI for further evaluation. Leukocytosis, recurrent left-sided pneumonia: Follow blood/sputum cultures. Previous blood cultures positivepansensitive. Continue vancomycin/cefepime at this time, pulmonology consulted for additional assistance, urine negative. Continue with as needed nebulizer treatments, incentive spirometry. Hyperlipidemia: Continue medications as appropriate COPD: Continue with as needed nebulizer treatments, patient not wheezing at this time. Hypothyroidism: Evaluate thyroid panel from previous admission. Continue medication Elevated aminotransferase levelshistory of chronic Tylenol abuse: Stable, decreased from previous. DVT PPX: Code status: Discharge Plan: Home Plan to discharge in: Greater than 2 days - Advance Directives Does patient have a Living Will: No Does patient have a Durable POA for Healthcare: No - Code Status/Comfort Care Code Status Assessed: Yes (Full code) Critical Care: No Time Spent Managing Pts Care (In Minutes): 55
[2020-09-02 19:43] LABS: Blood Morphology Comment NOT SEEN (NOT SEEN); Platelet Estimate INCR
[2020-09-02] MEDS ORDERED: ALBUTEROL 2.5 MG/3 ML NEB SOL NEB PRN (19:57)
[2020-09-02] MEDS ORDERED: VANCOMYCIN/NS 1 gm 1 GM/250 ML BAG IVPB SCH (19:57)
[2020-09-02] MEDS ORDERED: IPRATROPIUM BROM 0.5MG/2.5ML NEB PRN (19:57)
[2020-09-02] MEDS ORDERED: ONDANSETRON 4 MG/2 ML VIAL IV PRN (19:57)
[2020-09-02] MEDS ORDERED: CEFEPIME 1 GM/VIAL IV SCH (21:00)
[2020-09-02] MEDS: D5 0.45 NS 1,000 ML IV SCH (22:45)
[2020-09-03 05:06] VITALS: BMI 28.0
[2020-09-03] MEDS: LORazepam 2 MG/ML VIAL IV PRN ×3 (05:19→17:50)
[2020-09-03 06:20] LABS: Absolute Lymphocytes (CBC) 9.9 K/uL (0.7-4.9); Basophils % 0.5 % (0-1.3); Hematocrit 40.8 % (36.0-45.0); Lymphocytes % 42.7 % (15.3-44.8); MPV 8.9 fL (7.6-11.3); RBC Red Blood Cell Count 4.42 M/uL (3.86-4.86)
[2020-09-03 06:44] LABS: Albumin 2.8 g/dL (3.4-5.0); Bilirubin Total 0.6 mg/dL (0.2-1.0); Magnesium 1.8 mg/dL (1.8-2.4); Potassium 3.5 mmol/L (3.5-5.1); Protein, Total 6.7 g/dL (6.4-8.2)
[2020-09-03 06:46] LABS: Thyroid Stimulating Hormone 3.94 uIU/mL (0.360-3.740)
--- NOTE | 2020-09-03 07:29 | EKG ---
Test Date: 2020-09-02 Test Time: 18:02:50 Bulk Loader: HB MEASUREMENT RESULTS: Intervals: Rate: 96 WV: 120 QRSD: 68 QT: 332 QTc: 419 [place]: P: 85 WV: 120 QRS: 80 T: 82 INTERPRETIVE STATEMENTS: Normal sinus rhythm Normal ECG Compared to ECG 08/28/2020 22:02:30 Ventricular premature complex(es) no longer present Electronically Signed On 09-03-20 07:28:14 CDT by Tian Haynes
[2020-09-03] MEDS ORDERED: FOLIC ACID 5 MG/ML VIAL IVP SCH (09:00)
[2020-09-03] MEDS ORDERED: KCL 20 MEQ/100 mL IVPB 20 MEQ/100 ML BAG IV SCH (09:30)
[2020-09-03] MEDS ORDERED: CODEINE 30MG/APAP 300MG TAB PO PRN (10:44)
[2020-09-03] MEDS ORDERED: IPRATROPIUM BROM 0.5MG/2.5ML NEB PRN (10:44)
[2020-09-03] MEDS: FOLIC ACID 1 MG in NA CHLORIDE 0.9% 50 ML IV SCH (11:30)
[2020-09-03] MEDS: D5 0.45 NS 1,000 ML IV SCH (11:30)
[2020-09-03] MEDS: ENOXAPARIN 40 MG/0.4 ML SQ SCH (11:30)
[2020-09-03] MEDS: CEFEPIME/SWI 1gm 10 ML IV SCH ×2 (11:30→22:19)
--- NOTE | 2020-09-03 12:50 | RAD REPORT ---
EXAM DESCRIPTION: RAD - Chest Single View - 09/03/2020 12:42 pm CLINICAL HISTORY: pneumonia COMPARISON: Chest Single View dated 09/02/2020; Chest Single View dated 08/30/2020; Chest Single View dated 08/28/2020; Chest Pa And Lat (2 Views) dated 09/02/2015 FINDINGS: Mild improved aeration of left lung base compared with 09/02/2020. No new focal airspace o pacities are identified. Atherosclerosis. The heart size is within normal limits.No acute osseous abn ormality. No significant pleural effusions or pneumothorax. IMPRESSION: Improved but not completely resolved airspace disease at the left lung base.
[2020-09-03] MEDS: GABAPENTIN 300 MG CAP PO SCH ×2 (14:00→21:00)
[2020-09-03] MEDS ORDERED: ALPRAZOLAM 0.5 MG TABLET PO PRN (14:12)
[2020-09-03] MEDS: VANCOMYCIN 1.25 GM in NA CHLORIDE 0.9% 250 ML IVPB SCH (17:50)
[2020-09-03] MEDS: ATORVASTATIN 20 MG TAB PO SCH (21:00)
[2020-09-03] MEDS: ARFORMOTEROL TARTRATE 15 MCG/2 ML VIAL.NEB NEB SCH (21:30)
[2020-09-04 06:04] LABS: Absolute Lymphocytes (CBC) 8.3 K/uL (0.7-4.9); Basophils % 0.6 % (0-1.3); Hematocrit 37.5 % (36.0-45.0); Lymphocytes % 44.1 % (15.3-44.8); MPV 8.7 fL (7.6-11.3)
[2020-09-04 06:25] LABS: ALT/SGPT 182 U/L (12-78); AST/SGOT 116 U/L (15-37); Albumin 2.4 g/dL (3.4-5.0); Alkaline Phosphatase 143 U/L (45-117); BUN Blood Urea Nitrogen 12 mg/dL (7-18); Bicarbonate 33 mmol/L (21-32); Bilirubin Total 0.5 mg/dL (0.2-1.0); Creatine Phosphokinase 42 U/L (26-192); Glucose Level 114 mg/dL (74-106); Magnesium 2.1 mg/dL (1.8-2.4); Potassium 3.5 mmol/L (3.5-5.1); Protein, Total 5.7 g/dL (6.4-8.2); Sodium Level 140 mmol/L (136-145)
[2020-09-04] MEDS: LEVOTHYROXINE SOD 0.075 MG TAB PO SCH (07:30)
[2020-09-04] MEDS: ARFORMOTEROL TARTRATE 15 MCG/2 ML VIAL.NEB NEB SCH ×2 (07:45→21:30)
--- NOTE | 2020-09-04 08:21 | ECHO ---
HEIGHT: 5 ft 4 in WEIGHT: 163 lb 6.153 oz DATE OF STUDY: 09/03/[address]: Juan Leigh NP 2-DIMENSIONAL: YES M.MODE: YES DOPPLER: YES COLOR FLOW: YES TDS: PORTABLE: DEFINITY: BUBBLE STUDY: DIAGNOSIS: ALTERED MENTAL STATUS CARDIAC HISTORY: CATHERIZATION: SURGERY: PROSTHETIC VALVE: PACEMAKER: MEASUREMENTS (cm) DIASTOLIC (NORMALS) SYSTOLIC (NORMALS) IVSd 0.9 (0.6-1.2) LA Diam 23.3 (1.9-4.0) LVEF 63% LVIDd 4.0 (3.5-5.7) LVIDs 2.6 (2.0-3.5) %FS 34% LVPWd 1.0 (0.6-1.2) Ao Diam 2.3 (2.0-3.7) 2 DIMENSIONAL ASSESSMENT: RIGHT ATRIUM: NORMAL LEFT ATRIUM: NORMAL RIGHT VENTRICLE: NORMAL LEFT VENTRICLE: NORMAL TRICUSPID VALVE: MILD TRICUSPID REGURGITATION MITRAL VALVE: NORMAL PULMONIC VALVE: NORMAL AORTIC VALVE: NORMAL PERICARDIAL EFFUSION: NONE AORTIC ROOT: NORMAL LEFT VENTRICULAR WALL MOTION: NORMAL DOPPLER/COLOR FLOW: SEE BELOW COMMENTS: NORMAL LEFT VENTRICULAR EJECTION FRACTION 55-60%. (POOR WINDOWS). MILD TRICUSPID REGURGITATION. TECHNOLOGIST: MELISSA CAM
[2020-09-04] MEDS: MONTELUKAST 10 MG TAB PO SCH (09:00)
[2020-09-04] MEDS: GABAPENTIN 300 MG CAP PO SCH ×3 (09:00→21:51)
[2020-09-04] MEDS: PANTOPRAZOLE 40MG TABLET PO SCH (09:00)
[2020-09-04] MEDS: DULOXETINE 30 MG CAP PO SCH (09:00)
[2020-09-04] MEDS ORDERED: KCL 20 MEQ/100 mL IVPB 20 MEQ/100 ML BAG IV SCH (09:00)
--- NOTE | 2020-09-04 09:22 | RAD REPORT ---
EXAM DESCRIPTION: Vladimir Single View09/04/2020 5:52 am CLINICAL HISTORY: Chest pain COMPARISON: September 03, 2020 FINDINGS: Left lower lobe consolidation without significant change. Right lung appears clear of acute infiltrate. Heart is normal size IMPRESSION: Stable left lower lobe consolidation presumably pneumonia. This should be followed until it has cleared to help exclude a post obstructive process/underlying mass
[2020-09-04] MEDS: FOLIC ACID 1 MG in NA CHLORIDE 0.9% 50 ML IV SCH (10:48)
[2020-09-04] MEDS: ENOXAPARIN 40 MG/0.4 ML SQ SCH (10:48)
[2020-09-04] MEDS: CEFEPIME/SWI 1gm 10 ML IV SCH ×2 (10:50→21:50)
[2020-09-04] MEDS: D5 0.45 NS 1,000 ML IV SCH ×3 (11:57→21:56)
--- NOTE | 2020-09-04 14:18 | RAD REPORT ---
EXAM DESCRIPTION: US - CP - 09/04/2020 1:45 pm CLINICAL HISTORY: AMS, poss CVA COMPARISON: Head C Spine Mpr Wo Con dated 09/02/2020 TECHNIQUE: Real-time sonographic evaluation of bilateral carotid and vertebral systems was performed . Granados scale and Doppler interrogation were performed with waveform tracing bilaterally. FINDINGS: Normal high resistance waveforms are noted in both external carotid arteries. The common c arotid arteries and internal carotid arteries show normal low resistance waveforms. No significant plaque formation is seen. Peak systolic and end diastolic velocity values and the ICA/ CCA ratios are in the non-hemodynamically significant range. Antegrade flow seen in both vertebral arteries. Velocity values and ratios were recorded and are retained in the patient's imaging records. IMPRESSION: No significant atherosclerotic changes noted. No evidence of a hemodynamically significant stenosis.
[2020-09-04] MEDS: VANCOMYCIN 1.25 GM in NA CHLORIDE 0.9% 250 ML IVPB SCH (15:00)
[2020-09-04] MEDS ORDERED: VANCOMYCIN 1 GM/VIAL ONE (15:41)
--- NOTE | 2020-09-04 18:57 | CON ---
Consultation called because of altered mental status. History Of Present Illness: Ms. Fenton is a 79-year-old right handed patient who was just admitted to [facility] with pneumonia and discharged on Zosyn and now is readmitted. Appar ently, a family member found the patient on the floor. She had not been eating and was very weak mayur n prior to her initial admission with the pneumonia, but when discharged few days ago was not eating and drinking and was found lying on the floor, groaning by family members. The patient's friend in t he room mentioned that she had been taking multiple narcotic medications and in addition to many Tyle nol and had an episode of falling asleep while eating and almost choking on food, she aspirated food. At her most recent visit, she did receive an acetylcysteine. There was a negative COVID test. Uri ne drug screen was negative and she was given a milligram of Ativan at that time. Because of the pos sibility of trauma to her head cervical spine CT scan done and those studies showed no acute abnormal ities. There was reportedly a trace of retrolisthesis of C5 on C6 and C6 on C7, but no acute abnorma lities. There were no hemorrhage, no fracture. All structures were in place. Her chest x-ray shows mild increased airspace, decreased left lung base, which is consistent with a pneumonia and the stud y was compared to a single chest view dated 08/30, another 08/28 and then 09/02/2015. Echocardiogram showed ejection fraction 60%, essentially a normal study. Most recent chest x-ray done today showed subtle left lower lobe consolidation, presumably pneumonia. Blood work identified an elevated white count yesterday of 29,000 with neutrophils being 52. Her white blood cell count subsequently on h was 23,000 with a normal differential and 18,000 on with normal differential. It should be no brooklynn that the patient's white blood cell count has been chronically elevated since 08/28/2020. Prior to that in 2015, 5 years ago she had normal white blood cell count and differential, and with the citlalli vated white blood cell count, there was a normal differential. Arterial blood gas was essentially normal. Chemistries showed slightly low calcium, initially elevat ed lactic acid of 2.6, now normal at 0.9. Thyroid-stimulating hormone level elevated at 3.94 and artemio er function studies show elevated AST of 116, elevated ALT of 182, elevated alkaline phosphatases of 143. No ammonia level available. Urinalysis is essentially unremarkable for any bacterial infection . There is fat in the stool. COVID-19 tests is negative. Past Medical History: Include COPD, gastroesophageal reflux disease, chronic tobacco and prescriptio n drug abuse, alcohol use, Tylenol abuse, hypothyroidism. Surgical History: Hysterectomy and cholecystectomy. Family History: Cancer in mother and father. Social History: Patient lives with son and is . Allergies: ERYTHROMYCIN, RIFAMPIN. Medications At Home: Alprazolam daily, atorvastatin daily, Zyrtec 10 mg daily, Cymbalta 60 mg daily, Neurontin 600 mg 3 times a day, Singulair daily, levothyroxine daily, Tylenol 3 three times daily, S eroquel 300 mg at bedtime, Levaquin 500 mg daily, Atrovent 0.5 mg nebulizer every 6 hours, Brovana 15 mcg nebulizers twice daily. Review of Systems: The patient is not able to give a review of systems. She is actually having echocardiogram and she d id receive sedation earlier and and responding to questions. Physical Examination: Vital Signs: Blood pressure 129/59, pulse 60, respiratory rate 16 to 22, temperature 97.1, and satur ation 97% on 1 L oxygen by nasal cannula. echocardiogram she is sedated, receives Ativan. She has a slow respiratory rate at times but variable. General: She is normocephalic. She is atraumatic. Sclerae appear anicteric. Chest: Moving air properly. Abdomen: Soft. Extremities: No significant edema or cyanosis. Neurologic: Again the patient has received sedation. Face appears symmetric. Arms have normal tone , normal reflexes. Unable to assess strength, coordination, sensation and gait. Assessment: Ms. Fenton is a 79-year-old patient with likely multifactorial reasons for encephalopat hy. She per the friend at bedside have been using multiple narcotic medications, extensive amounts o f Tylenol and had possible aspiration pneumonia. She was sedated with history of aspiration pneumoni a of food contents. The patient is not likely to have had a stroke. Her imaging of the brain from h ead CT scan shows no acute ischemic or hemorrhagic change; however, she MRI of the brain is recommend ed to completely rule that out. She did have a carotid artery ultrasound studies that showed no evid ence of hemodynamically significant stenosis. The other pending study would be EEG to determine if t here is evidence of an encephalopathy with slow activity in the frontal region or diphasic waves or o ther possible abnormal activity. Plan: Order EEG. The patient may benefit from a lumbar puncture if the answer is not quite clear an d just the pneumonia or if she does not begin to resolve her altered mental status within the next 2 or so days. Currently, she should have the antibiotics to continue and again may consider broader sp ectrum depending on the possibility of a central nervous system involvement. However, the most likel y etiology is a combination of drug abuse, pneumonia with liver dysfunction as evidenced by abnormal liver function studies. She should have an ammonia level check and the patient will be followed with hospitalists as appropriate. OMAR/FIDELIA Voice ID: [id number] Report ID: [id number]
[2020-09-04 20:06] LABS: Urine Appearance CLEAR (Clear); Urine Bilirubin NEGATIVE (Negative); Urine Blood NEGATIVE (Negative); Urine Color YELLOW (Yellow); Urine Glucose NEGATIVE (Negative); Urine Protein NEGATIVE (Negative); Urine Specific Gravity <=1.005 (1.005-1.030)
[2020-09-04 20:27] LABS: Urine Microscopic Reflex NO UMIC
--- NOTE | 2020-09-04 21:18 | P.CNS ---
Date of Consult: 09/04/20 (D in law agreed to TV) Reason for Consult: EVELIAL yvetteonia AMS Primary Care Provider: Dr. Vallejo Chief Complaint: Pneumonia, altered mental status History of Present Illness: Age 79 metabolic synd AWAMS recent admission. DW caregiver/ May be taking excessive meds at home/ Son not able to take careof pt Weak with multiple falls/ Elevated LFT's/ D in law at bedside/ pt unresponsive Allergies azithromycin [From Zithromax] Allergy (Verified 09/03/20 04:52) Hives/Rash rifampin Allergy (Verified 09/03/20 04:52) Hives/Rash refampin Allergy (Uncoded 08/01/15 21:08) Unknown Home Medications: ALPRAZolam [Xanax*] 0.5 tab PO Q6H PRN 08/01/15 Atorvastatin Calcium [Lipitor*] 1 tab PO DAILY 08/01/15 Cetirizine HCl [Zyrtec*] 10 mg PO DAILY 08/01/15 Duloxetine [Cymbalta *] 60 mg PO DAILY 08/01/15 Gabapentin [Neurontin*] 600 mg PO TID 08/01/15 Montelukast [Singulair*] 1 tab PO DAILY 08/01/15 Levothyroxine Sodium 1 tab PO DAILY 08/02/15 Codeine/APAP [Tylenol #3*] 1 tab PO TID PRN #15 tab 08/04/15 Quetiapine [Seroquel*] 400 mg PO BEDTIME PRN 08/29/20 Arformoterol Tartrate [Brovana] 15 mcg NEB BIDRESP #60 vial.neb 08/31/20 Ipratropium Neb [Atrovent*] 0.5 mg NEB [id number] PRN #60 amp 08/31/20 Omeprazole [Prilosec] 40 mg PO DAILY 09/03/20 methocarbamoL [Methocarbamol] 1 tab PO Q8H PRN 09/03/20 - Past Medical/Surgical History Diabetic: No -: COPD -: GERD with a hiatal hernia -: Memory loss issues -: Tobacco abuse -: Alcohol use -: Tylenol abuse -: Hypothyroidism -: hysterectomy -: cholecystectomy Psychosocial/ Personal History: Patient is , lives with her son, she is retired. - Family History Mother Medical History: Cancer Father Medical History: Cancer - Social History Smoking Status: Unknown if ever smoked Alcohol use: No CD- Drugs: No Caffeine use: Yes Place of Residence: Home Review of Systems is unable to be obtained Physical Examination Temp Pulse Resp BP Pulse Ox 97.3 F 83 18 158/69 H 97 09/04/20 20:00 09/04/20 20:00 09/04/20 20:00 09/04/20 20:00 09/04/20 20:00 General: Unresponsive - Problems (1) Pneumonia Current Visit: No Status: Acute Plan: PT AW AMS, Poss septic WBC elevated, LLL infiltrate/ ALT is improving/ SE of meds? taking 1200 mg of Seroquel at home and lots of Actameinophen/ WBC is declining/bC neg/ mass like area in LLL/ pt was discharged home on Levaquin/ DC vanc BC negative/Head Ct neg Qualifiers: Pneumonia type: due to unspecified organism Laterality: left
[2020-09-04] MEDS: ATORVASTATIN 20 MG TAB PO SCH (21:50)
[2020-09-05 05:55] LABS: Absolute Lymphocytes (CBC) 6.4 K/uL (0.7-4.9); Basophils % 0.4 % (0-1.3); Hematocrit 41.1 % (36.0-45.0); Lymphocytes % 37.5 % (15.3-44.8); MPV 9.3 fL (7.6-11.3); RBC Red Blood Cell Count 4.48 M/uL (3.86-4.86)
[2020-09-05 06:22] LABS: ALT/SGPT 172 U/L (12-78); AST/SGOT 91 U/L (15-37); Albumin 2.4 g/dL (3.4-5.0); Alkaline Phosphatase 141 U/L (45-117); BUN Blood Urea Nitrogen 9 mg/dL (7-18); Bicarbonate 34 mmol/L (21-32); Bilirubin Total 0.4 mg/dL (0.2-1.0); Creatine Phosphokinase 26 U/L (26-192); Glucose Level 98 mg/dL (74-106); Magnesium 2.1 mg/dL (1.8-2.4); Potassium 3.4 mmol/L (3.5-5.1); Sodium Level 141 mmol/L (136-145)
[2020-09-05] MEDS ORDERED: VANCOMYCIN 1 GM/VIAL ONE (07:59)
[2020-09-05] MEDS: ARFORMOTEROL TARTRATE 15 MCG/2 ML VIAL.NEB NEB SCH ×2 (08:03→19:50)
[2020-09-05] MEDS: LEVOTHYROXINE SOD 0.075 MG TAB PO SCH (08:13)
[2020-09-05] MEDS: GABAPENTIN 300 MG CAP PO SCH ×3 (08:13→20:19)
[2020-09-05] MEDS: MONTELUKAST 10 MG TAB PO SCH (08:13)
[2020-09-05] MEDS: ENOXAPARIN 40 MG/0.4 ML SQ SCH (08:13)
[2020-09-05] MEDS: DULOXETINE 30 MG CAP PO SCH (08:14)
[2020-09-05] MEDS: PANTOPRAZOLE 40MG TABLET PO SCH (08:15)
[2020-09-05] MEDS: CEFEPIME/SWI 1gm 10 ML IV SCH (08:15)
[2020-09-05] MEDS ORDERED: POTASSIUM CL SA 10 MEQ TAB PO ONE ×2 (09:00→20:35)
[2020-09-05] MEDS ORDERED: VANCOMYCIN 1.25 GM in NA CHLORIDE 0.9% 250 ML IVPB SCH (09:00)
[2020-09-05] MEDS: FOLIC ACID 1 MG in NA CHLORIDE 0.9% 50 ML IV SCH (11:04)
[2020-09-05] MEDS: D5 0.45 NS 1,000 ML IV SCH (11:05)
--- NOTE | 2020-09-05 12:11 | P.PN ---
Subjective Date of Service: 09/05/20 Primary Care Provider: Dr. Vallejo Chief Complaint: Pneumonia, altered mental status Subjective: Improving (Much better today alert and responsive) Review of Systems General: Weakness Physical Examination - Vital Signs Temperature: 97.9 F Blood Pressure: 177/81 Pulse: 79 Respirations: 20 Pulse Ox (%): 97 - Physical Exam General: Alert, Oriented x3, Cooperative Assessment & Plan - Problems (Diagnosis) (1) Pneumonia Current Visit: No Status: Acute Plan: Much better more alert/ SE of meds/ Change to PO Ab/ WBC declining/ LFT improving/ BP elevated/ PT/ Cultures neg Qualifiers: Pneumonia type: due to unspecified organism Laterality: left
[2020-09-05] MEDS: levoFLOXacin 500 MG TAB PO SCH (12:50)
[2020-09-05] MEDS: ATORVASTATIN 20 MG TAB PO SCH (20:19)
[2020-09-06] MEDS: D5 0.45 NS 1,000 ML IV SCH (05:40)
[2020-09-06] MEDS: ARFORMOTEROL TARTRATE 15 MCG/2 ML VIAL.NEB NEB SCH ×2 (06:05→19:55)
[2020-09-06 06:17] LABS: Absolute Lymphocytes (CBC) 5.3 K/uL (0.7-4.9); Basophils % 0.4 % (0-1.3); Lymphocytes % 42.2 % (15.3-44.8); MPV 9.4 fL (7.6-11.3)
[2020-09-06 06:29] LABS: ALT/SGPT 140 U/L (12-78); AST/SGOT 59 U/L (15-37); Albumin 2.5 g/dL (3.4-5.0); Alkaline Phosphatase 140 U/L (45-117); BUN Blood Urea Nitrogen 9 mg/dL (7-18); Bicarbonate 33 mmol/L (21-32); Bilirubin Total 0.4 mg/dL (0.2-1.0); Glucose Level 95 mg/dL (74-106); Potassium 3.7 mmol/L (3.5-5.1); Protein, Total 6.2 g/dL (6.4-8.2); Sodium Level 141 mmol/L (136-145)
[2020-09-06] MEDS: ENOXAPARIN 40 MG/0.4 ML SQ SCH (09:00)
[2020-09-06] MEDS ORDERED: POTASSIUM 25 MEQ EFFERV TAB PO ONE (09:30)
[2020-09-06] MEDS: FOLIC ACID 1 MG in NA CHLORIDE 0.9% 50 ML IV SCH (10:28)
[2020-09-06] MEDS: GABAPENTIN 300 MG CAP PO SCH ×3 (10:29→20:52)
[2020-09-06] MEDS: DULOXETINE 30 MG CAP PO SCH (10:29)
[2020-09-06] MEDS: MONTELUKAST 10 MG TAB PO SCH (10:29)
[2020-09-06] MEDS: LEVOTHYROXINE SOD 0.075 MG TAB PO SCH (10:29)
[2020-09-06] MEDS: levoFLOXacin 500 MG TAB PO SCH (10:30)
[2020-09-06] MEDS: PANTOPRAZOLE 40MG TABLET PO SCH (10:30)
--- NOTE | 2020-09-06 11:59 | P.PN ---
Subjective Date of Service: 09/03/20 No significant improvement; still lethargic and obtunded; MRI pending; Continue with antibiotics and hydration Review of Systems 10-point ROS is otherwise unremarkable Physical Examination - Vital Signs Temperature: 97.6 F Blood Pressure: 133/63 Pulse: 81 Respirations: 16 Pulse Ox (%): 98 - Physical Exam General: Confused, Delirious Respiratory: Crackles/rales, Rhonchi/gurgles Cardiovascular: Regular rate/rhythm, Normal S1 S2 Gastrointestinal: Normal bowel sounds, Soft and benign, Non-distended Musculoskeletal: No clubbing, No swelling Integumentary: No rashes Neurological: Normal tone, Sensation intact, Cranial nerves 3-12 intact Assessment & Plan - Problems (Diagnosis) (1) Pneumonia Current Visit: Yes Status: Acute (2) AMS (altered mental status) Current Visit: Yes Status: Acute (3) Accidental overdose Current Visit: Yes Status: Acute (4) Unintelligible articulation Current Visit: Yes Status: Acute (5) COPD (chronic obstructive pulmonary disease) Current Visit: Yes Status: Acute (6) Leukocytosis Current Visit: Yes Status: Acute (7) Abnormal LFTs Current Visit: No Status: Acute - Plan PLAN: 1. Continue with IV hydration 2. Family concerned about overmedication: on Seroquel 1200mg qhs for sleep; gabapentin 1800mg daily; muscle relaxers; xanax; will stop these and monitor for withdrawals; Neuro states that so far work-up has been unremarkable 3. Neuro checks q4h 4. MRI pending if possible 5. Monitor LFTs 6. Monitor resp status Discharge Plan: Halfway Plan to discharge in: Greater than 2 days - Advance Directives Does patient have a Living Will: No Does patient have a Durable POA for Healthcare: No - Code Status/Comfort Care Code Status Assessed: Yes Code Status: Full Code Critical Care: No Time Spent Managing PTS Care (In Minutes): 35
--- NOTE | 2020-09-06 12:03 | P.PN ---
Date of Service: 09/04/20 Subjective Patient apparently more awake per nursing and on evaluation she is answering questions and more alert and responsive Review of Systems 10-point ROS is otherwise unremarkable Physical Examination - Vital Signs reviewed - Physical Exam General: Awake and alert; still having some difficulty with answering all questions but definitely more alert Respiratory: Clear bilaterally Cardiovascular: Regular rate/rhythm, Normal S1 S2 Gastrointestinal: Normal bowel sounds, Soft and benign, Non-distended Musculoskeletal: No clubbing, No swelling Integumentary: No rashes Neurological: Normal tone, Sensation intact, Cranial nerves 3-12 intact Assessment & Plan - Problems (Diagnosis) (1) Pneumonia Current Visit: Yes Status: Acute (2) AMS (altered mental status) Current Visit: Yes Status: Acute (3) Accidental overdose Current Visit: Yes Status: Acute (4) Unintelligible articulation Current Visit: Yes Status: Acute (5) COPD (chronic obstructive pulmonary disease) Current Visit: Yes Status: Acute (6) Leukocytosis Current Visit: Yes Status: Acute (7) Abnormal LFTs Current Visit: No Status: Acute - Plan PLAN: 1. Continue with IV hydration 2. Family concerned about overmedication: on Seroquel 1200mg qhs for sleep; gabapentin 1800mg daily; muscle relaxers; xanax; will stop these and monitor for withdrawals; Neuro states that so far work-up has been unremarkable; requesting placement; will have longer discussion with patient when more awake and alert 3. Neuro checks q6h 4. MRI delayed; may proceed if mentation does not improve to baseline 5. LFTs stable 6. O2 stats stable
--- NOTE | 2020-09-06 12:05 | P.PN ---
Date of Service: 09/05/20 Subjective Patient is doing well with no complaints; still having a little dyspnea but improved Review of Systems 10-point ROS is otherwise unremarkable Physical Examination - Vital Signs reviewed - Physical Exam General: Awake and alert; AAO x 3 Respiratory: Clear bilaterally Cardiovascular: Regular rate/rhythm, Normal S1 S2 Gastrointestinal: Normal bowel sounds, Soft and benign, Non-distended Musculoskeletal: No clubbing, No swelling Integumentary: No rashes Neurological: Normal tone, Sensation intact, Cranial nerves 3-12 intact Assessment & Plan - Problems (Diagnosis) (1) Pneumonia Current Visit: Yes Status: Acute (2) AMS (altered mental status) Current Visit: Yes Status: Acute (3) Accidental overdose Current Visit: Yes Status: Acute (4) Unintelligible articulation Current Visit: Yes Status: Acute (5) COPD (chronic obstructive pulmonary disease) Current Visit: Yes Status: Acute (6) Leukocytosis Current Visit: Yes Status: Acute (7) Abnormal LFTs Current Visit: No Status: Acute - Plan PLAN: 1. Continue with IV hydration 2. Discussed with family re: placement and that is their preference but patient is not really inclined to do this; will discuss in AM 3. Mentation back to baseline 4. PT; check RA O2 sats 5. LFTs stable 6. O2 stats stable
--- NOTE | 2020-09-06 12:07 | P.PN ---
Date of Service: 09/06/20 Subjective Had a long conversation with patient and she does not really want to go to a facility for rehab or for a [facility] psych referral. She denies being depressed and she denies being suicidal. Currently she remains little hypoxic and will work on try to get her oxygenation improved. Chest x-ray shows no significant change in pneumonic process. Will discuss this with patient's daughter and granddaughter. Will make a decision regarding plan of care over the next 48 hr. Patient cannot go back home on the large doses of medication that she is been on. Have told her she will need to follow-up and only take her medications for COPD and pneumonia at this time. If she needs something for anxiety will resume her is Xanax at a very low dose. Reassess urologically over the course of the next 24-48 hr and anticipate discharge at that time with oral antibiotic therapy. Review of Systems 10-point ROS is otherwise unremarkable Physical Examination - Vital Signs reviewed - Physical Exam General: Awake and alert; AAO x 3 Respiratory: Clear bilaterally Cardiovascular: Regular rate/rhythm, Normal S1 S2 Gastrointestinal: Normal bowel sounds, Soft and benign, Non-distended Musculoskeletal: No clubbing, No swelling Integumentary: No rashes Neurological: Normal tone, Sensation intact, Cranial nerves 3-12 intact Assessment & Plan - Problems (Diagnosis) (1) Pneumonia Current Visit: Yes Status: Acute (2) AMS (altered mental status) Current Visit: Yes Status: Acute (3) Accidental overdose Current Visit: Yes Status: Acute (4) Unintelligible articulation Current Visit: Yes Status: Acute (5) COPD (chronic obstructive pulmonary disease) Current Visit: Yes Status: Acute (6) Leukocytosis Current Visit: Yes Status: Acute (7) Abnormal LFTs Current Visit: No Status: Acute - Plan PLAN: Continue with plan of care as mentioned below 1. Hep-Lock IV 2. Continue discussing with family regarding plan of care. Patient is not willing to go to a facility. 3. Patient's neurologically back to baseline; continue monitoring neurologic status and as oxygenation improves I anticipate she will be back to her baseline. 4. PT; check RA O2 sats 5. LFTs stable 6. O2 stats stable
[2020-09-06] MEDS: CODEINE 30MG/APAP 300MG TAB PO PRN (18:37)
[2020-09-06] MEDS: ATORVASTATIN 20 MG TAB PO SCH (20:50)
[2020-09-06] MEDS: ALPRAZOLAM 0.5 MG TABLET PO PRN (22:52)
[2020-09-07] MEDS: CODEINE 30MG/APAP 300MG TAB PO PRN ×2 (05:55→16:58)
--- NOTE | 2020-09-07 05:57 | P.PN ---
Subjective Date of Service: 09/07/20 Primary Care Provider: Dr. Vallejo Chief Complaint: Pneumonia, altered mental status Subjective: Improving, Doing well Physical Examination - Vital Signs Temperature: 97.5 F Blood Pressure: 138/63 Pulse: 75 Respirations: 18 Pulse Ox (%): 95 Assessment & Plan Discharge Plan: Home (with HH and PT along with Home oxygen) Plan to discharge in: 24 Hours Physician Review Additional Text: CXR: COMPARISON: Chest Single View dated 08/30/2020; Chest Single View dated 08/28/2020; Chest Pa And Lat (2 Views) dated 09/02/2015; Chest Pa And Lat (2 Views) dated 08/02/2015 FINDINGS: Similar to mild worsening in the left basilar airspace disease. The heart size is within normal limits.No acute osseous abnormality. No significant pleural effusions or pneumothorax. IMPRESSION: Similar to mild increased airspace disease at the left lung base which remains concerning for pneumonia. CT Head: COMPARISON: Head C Spine Mpr Wo Con dated 08/01/2015 TECHNIQUE: Axial 5 mm thick images of the head were obtained. Axial 2 mm thick images of the cervical spine were obtained with sagittal and coronal reconstruction images generated and reviewed. All CT scans are performed using dose optimization technique as appropriate and may include automated exposure control or mA/KV adjustment according to patient size. FINDINGS: CT HEAD WITHOUT CONTRAST: No acute hemorrhage, hydrocephalus or extra-axial collection is identified.No areas of brain edema or midline shift. The paranasal sinuses and mastoids are clear.The calvarium is intact. CT CERVICAL SPINE WITHOUT CONTRAST: Multilevel cervical spondylosis with varying degrees of neural foraminal narrowing. There is trace retrolisthesis of C5 on C6 and C6 on C7. There is some motion artifact at C1-2 which mildly limits evaluation and simulates the appearance of a fracture.No prevertebral soft tissues swelling is identified. IMPRESSION: No acute intracranial abnormality. No fracture or traumatic malalignment of the cervical spine. ECHO: MEASUREMENTS (cm) DIASTOLIC (NORMALS) SYSTOLIC (NORMALS) IVSd 0.9 (0.6-1.2) LA Diam 23.3 (1.9-4.0) LVEF 63% LVIDd 4.0 (3.5-5.7) LVIDs 2.6 (2.0-3.5) %FS 34% LVPWd 1.0 (0.6-1.2) Ao Diam 2.3 (2.0-3.7) 2 DIMENSIONAL ASSESSMENT: RIGHT ATRIUM: NORMAL LEFT ATRIUM: NORMAL RIGHT VENTRICLE: NORMAL LEFT VENTRICLE: NORMAL TRICUSPID VALVE: MILD TRICUSPID REGURGITATION MITRAL VALVE: NORMAL PULMONIC VALVE: NORMAL AORTIC VALVE: NORMAL PERICARDIAL EFFUSION: NONE AORTIC ROOT: NORMAL LEFT VENTRICULAR WALL MOTION: NORMAL DOPPLER/COLOR FLOW: SEE BELOW COMMENTS: NORMAL LEFT VENTRICULAR EJECTION FRACTION 55-60%. (POOR WINDOWS). MILD TRICUSPID REGURGITATION. Carotid doppler: COMPARISON: Head C Spine Mpr Wo Con dated 09/02/2020 TECHNIQUE: Real-time sonographic evaluation of bilateral carotid and vertebral systems was performed. Granados scale and Doppler interrogation were performed with waveform tracing bilaterally. FINDINGS: Normal high resistance waveforms are noted in both external carotid arteries. The common carotid arteries and internal carotid arteries show normal low resistance waveforms. No significant plaque formation is seen. Peak systolic and end diastolic velocity values and the ICA/CCA ratios are in the non-hemodynamically significant range. Antegrade flow seen in both vertebral arteries. Velocity values and ratios were recorded and are retained in the patient's imaging records. IMPRESSION: No significant atherosclerotic changes noted. No evidence of a hemodynamically significant stenosis. Follow up CXR: COMPARISON: September 03, 2020 FINDINGS: Left lower lobe consolidation without significant change. Right lung appears clear of acute infiltrate. Heart is normal size IMPRESSION: Stable left lower lobe consolidation presumably pneumonia. This should be followed until it has cleared to help exclude a post obstructive process/underlying mass Physical Exam: General: Awake and alert; AAO x 3 Respiratory: Clear bilaterally, currently on 3 L per nasal cannula. Cardiovascular: Regular rate/rhythm, Normal S1 S2 Gastrointestinal: Normal bowel sounds, Soft and benign, Non-distended Musculoskeletal: No clubbing, No swelling Integumentary: No rashes Neurological: Normal tone, Sensation intact, Cranial nerves 3-12 intact Impression: Left Lower Lobe Pneumonia COPD exacerbation AMS secondary to accidental overdose of medication Depression with anxiety Plan: Continue with plan of care as mentioned below 1. Hep-Lock IV 2. Patient desires to go home. Patient will require home health, physical therapy and home oxygen. 3. Patient back to her baseline.. 4. Continue with COPD medication 5. Continue with antibiotic. 6. Arrange for home discharge. Time Spent Managing Pts Care (In Minutes): 55
[2020-09-07 05:58] LABS: Basophils % 0.4 % (0-1.3); Lymphocytes % 58.2 % (15.3-44.8); MPV 9.7 fL (7.6-11.3); RBC Red Blood Cell Count 4.31 M/uL (3.86-4.86)
[2020-09-07 06:20] LABS: BUN Blood Urea Nitrogen 8 mg/dL (7-18); Bicarbonate 36 mmol/L (21-32); Glucose Level 80 mg/dL (74-106); Magnesium 2.1 mg/dL (1.8-2.4); Potassium 4.1 mmol/L (3.5-5.1); Sodium Level 141 mmol/L (136-145)
[2020-09-07] MEDS: LEVOTHYROXINE SOD 0.075 MG TAB PO SCH (06:34)
[2020-09-07 07:29] LABS: Blood Morphology Comment NOTED (NOT SEEN); Platelet Estimate ADEQ; Stomatocytes 1+
[2020-09-07] MEDS: ARFORMOTEROL TARTRATE 15 MCG/2 ML VIAL.NEB NEB SCH ×2 (08:00→19:35)
[2020-09-07] MEDS: ENOXAPARIN 40 MG/0.4 ML SQ SCH (09:00)
[2020-09-07] MEDS: MONTELUKAST 10 MG TAB PO SCH (09:09)
[2020-09-07] MEDS: GABAPENTIN 300 MG CAP PO SCH ×3 (09:09→20:42)
[2020-09-07] MEDS: DULOXETINE 30 MG CAP PO SCH (09:09)
[2020-09-07] MEDS: levoFLOXacin 500 MG TAB PO SCH (09:10)
[2020-09-07] MEDS: PANTOPRAZOLE 40MG TABLET PO SCH (09:10)
--- NOTE | 2020-09-07 13:14 | P.DS ---
Admission Date: 09/02/20 Discharge Date: 09/07/20 Primary Care Provider: Dr. Vallejo Disposition: DC HOME/HOME HEALTH CARE Discharge Condition: GOOD Reason for Admission: Pneumonia, altered mental status Consultations: Pulmonary-Dr. Arriaga Neurology-Dr. Salazar Procedures: CXR: COMPARISON: Chest Single View dated 08/30/2020; Chest Single View dated 08/29/19 21; Chest Pa And Lat (2 Views) dated 09/02/2015; Chest Pa And Lat (2 Views) dated 08/02/2015 FINDINGS: Similar to mild worsening in the left basilar airspace disease. The heart size is within normal limits.No acute osseous abnormality. No significant pleural effusions or pneumothorax. IMPRESSION: Similar to mild increased airspace disease at the left lung base which remains concerning for pneumonia. CT Head: COMPARISON: Head C Spine Mpr Wo Con dated 08/01/2015 TECHNIQUE: Axial 5 mm thick images of the head were obtained. Axial 2 mm thick images of the cervical spine were obtained with sagittal and coronal reconstruction images generated and reviewed. All CT scans are performed using dose optimization technique as appropriate and may include automated exposure control or mA/KV adjustment according to patient size. FINDINGS: CT HEAD WITHOUT CONTRAST: No acute hemorrhage, hydrocephalus or extra-axial collection is identified.No areas of brain edema or midline shift. The paranasal sinuses and mastoids are clear.The calvarium is intact. CT CERVICAL SPINE WITHOUT CONTRAST: Multilevel cervical spondylosis with varying degrees of neural foraminal narrowing. There is trace retrolisthesis of C5 on C6 and C6 on C7. There is some motion artifact at C1-2 which mildly limits evaluation and simulates the appearance of a fracture.No prevertebral soft tissues swelling is identified. IMPRESSION: No acute intracranial abnormality. No fracture or traumatic malalignment of the cervical spine. ECHO: MEASUREMENTS (cm) DIASTOLIC (NORMALS) SYSTOLIC (NORMALS) IVSd 0.9 (0.6-1.2) LA Diam 23.3 (1.9-4.0) LVEF 63% LVIDd 4.0 (3.5-5.7) LVIDs 2.6 (2.0-3.5) %FS 34% LVPWd 1.0 (0.6-1.2) Ao Diam 2.3 (2.0-3.7) 2 DIMENSIONAL ASSESSMENT: RIGHT ATRIUM: NORMAL LEFT ATRIUM: NORMAL RIGHT VENTRICLE: NORMAL LEFT VENTRICLE: NORMAL TRICUSPID VALVE: MILD TRICUSPID REGURGITATION MITRAL VALVE: NORMAL PULMONIC VALVE: NORMAL AORTIC VALVE: NORMAL PERICARDIAL EFFUSION: NONE AORTIC ROOT: NORMAL LEFT VENTRICULAR WALL MOTION: NORMAL DOPPLER/COLOR FLOW: SEE BELOW COMMENTS: NORMAL LEFT VENTRICULAR EJECTION FRACTION 55-60%. (POOR WINDOWS). MILD TRICUSPID REGURGITATION. Carotid doppler: COMPARISON: Head C Spine Mpr Wo Con dated 09/02/2020 TECHNIQUE: Real-time sonographic evaluation of bilateral carotid and vertebral systems was performed. Granados scale and Doppler interrogation were performed with waveform tracing bilaterally. FINDINGS: Normal high resistance waveforms are noted in both external carotid arteries. The common carotid arteries and internal carotid arteries show normal low resistance waveforms. No significant plaque formation is seen. Peak systolic and end diastolic velocity values and the ICA/CCA ratios are in the non-hemodynamically significant range. Antegrade flow seen in both vertebral arteries. Velocity values and ratios were recorded and are retained in the patient's imaging records. IMPRESSION: No significant atherosclerotic changes noted. No evidence of a hemodynamically significant stenosis. Follow up CXR: COMPARISON: September 03, 2020 FINDINGS: Left lower lobe consolidation without significant change. Right lung appears clear of acute infiltrate. Heart is normal size IMPRESSION: Stable left lower lobe consolidation presumably pneumonia. This should be followed until it has cleared to help exclude a post obstructive process/underlying mass Medical problem list: Left Lower Lobe Pneumonia complicated with COPD exacerbation Toxic/metabolic encephalopathy secondary to accidental overdose of medication Depression with anxiety Hypothyroidism Hyperlipidemia Chronic pain Brief History of Present Illness: 79-year-old female with history of hyperlipidemia, COPD, hypothyroidism presents emergency department for altered mental status. Patient with recent admission for left-sided pneumonia was treated with Zosyn and discharged a few days prior. Family reports at home patient has been very weak with multiple falls, not acting herself, not eating and drinking well. [id number] reports that last night patient was groaning all night, today when she went to check on her she found her laying on the floor groaning, patient currently nonverbal but groaning, will make eye contact but not speaking. Not following any verbal commands at this time. Patient was evaluated in the emergency department CT head C-spine negative for any acute findings chest x-ray redemonstrates pneumonia similar to previous. Labs were significant for white blood cell count 29.4 procalcitonin 0.09 BNP 3121 ammonia 11 AST 90 ALT 252 alk phos 198, these are stable from previous. Patient with chronic Tylenol abuse/overdose which has been discontinued. Patient was previously treated with N-acetylcysteine. Urinalysis negative for signs of infection Covid test negative. UDS also negative, patient is prescribed long- term benzodiazepine therapy, there is a question of benzodiazepine withdrawal, patient was given Ativan 0.5 mg x 2 in the emergency department which did not seem to relieve symptoms. Patient was admitted for further evaluation and treatment. Hospital Course: Patient presented with dyspnea secondary to left lower lobe pneumonia complicated with COPD exacerbation. This was further complicated with toxic/metabolic encephalopathy secondary to accidental overdose of medication. Patient had been taking high doses of Seroquel. This was discontinued during the course of her stay. Other medications were adjusted. This included Neurontin decreased from 600 mg 3 times a day to 300 mg 3 times a day. The patient has improved. Skilled placement was recommended but the patient declined. Patient would rather go home with home health. Patient understands that her medications needed to be adjusted due to increased sedation. Patient back to her baseline. Patient still requires oxygen at discharge. The patient will continue with home oxygen to maintain sats above 93%. Patient currently on 2 L per nasal cannula. At discharge she will continue with her COPD medication of Brovana 1 unit dose twice daily and albuterol/Atrovent 1 unit dose 3 times a day as needed for shortness of breath. For her pneumonia the patient will continue with Levaquin 750 mg daily for 5 more days. Recommend to recheck chest x-ray in 2 to 4 weeks to monitor resolution. Patient will continue with COPD education. Recommend follow-up with pulmonology in 1 week to follow-up this hospitalization. At discharge home health and physical therapy will be arranged. Recommend follow-up with PCP in 1 week to follow-up this hospitalization. Due to her toxic encephalopathy related to accidental overdose of medication, medications have been adjusted. Patient will no longer take Seroquel or methocarbamol. Patient has been taking Tylenol, Cymbalta, Neurontin and Xanax. Medications will need to be monitored closely. At discharge the patient will continue with Cymbalta 60 mg 1 pill daily. Neurontin will be decreased to 300 mg 1 pill 3 times a day. She is to hold this medication if with increase sedation. Patient may continue with Xanax 0.5 mg every 6 hours as needed for anxiety. Recommend to hold medication if with increase sedation. Patient may continue with Tylenol 3 up to 3 times a day as needed for pain. Patient with hyperlipidemia. At discharge she will continue with Lipitor 20 mg daily. Patient with hypothyroidism. At discharge patient will continue with levothyroxine 150 mcg daily. Patient with GERD. At discharge we will continue with Prilosec 40 mg daily. Vital Signs/Physical Exam: Temp Pulse Resp BP Pulse Ox 97.5 F 75 18 138/63 95 09/07/20 13:11 09/07/20 13:11 09/07/20 13:11 09/07/20 13:11 09/07/20 13:11 General: Alert, In no apparent distress, Oriented x3, Cooperative HEENT: Atraumatic Neck: Supple Respiratory: Expiratory wheezes (Mild), Other (Currently on 3 L per nasal cannula) Cardiovascular: Normal pulses, Regular rate/rhythm Gastrointestinal: Normal bowel sounds, No tenderness, No masses, No rebound, No guarding Musculoskeletal: No erythema, No tenderness, No warmth Integumentary: No tenderness/swelling, No erythema, No warmth, No cyanosis Neurological: Normal speech, Normal strength at 5/5 x4 extr, Normal tone, Normal affect Laboratory Data at Discharge: WBC 15.40 K/uL (4.3-10.9) H D 09/07/20 05:15 Hgb 12.9 g/dL (12.0-15.0) 09/07/20 05:15 Hct 40.0 % (36.0-45.0) 09/07/20 05:15 Plt Count 312 K/uL (152-406) 09/07/20 05:15 PT 14.9 SECONDS (9.5-12.5) H 09/02/20 15:50 INR 1.29 09/02/20 15:50 Sodium 141 mmol/L (136-145) 09/07/20 05:15 Potassium 4.1 mmol/L (3.5-5.1) 09/07/20 05:15 Potassium Cancelled 09/07/20 05:15 BUN 8 mg/dL (7-18) 09/07/20 05:15 Creatinine 0.55 mg/dL (0.55-1.3) 09/07/20 05:15 Glucose 80 mg/dL (74-106) 09/07/20 05:15 Magnesium 2.1 mg/dL (1.8-2.4) 09/07/20 05:15 Total Bilirubin 0.4 mg/dL (0.2-1.0) 09/06/20 05:33 AST 59 U/L (15-37) H 09/06/20 05:33 ALT 140 U/L (12-78) H 09/06/20 05:33 Alkaline Phosphatase 140 U/L (45-117) H 09/06/20 05:33 Home Medications: ALPRAZolam [Xanax*] 0.5 tab PO Q6H PRN 08/01/15 Atorvastatin Calcium [Lipitor*] 1 tab PO DAILY 08/01/15 Duloxetine [Cymbalta *] 60 mg PO DAILY 08/01/15 Gabapentin [Neurontin*] 600 mg PO TID 08/01/15 Montelukast [Singulair*] 1 tab PO DAILY 08/01/15 Levothyroxine Sodium 1 tab PO DAILY 08/02/15 Codeine/APAP [Tylenol #3*] 1 tab PO TID PRN #15 tab 08/04/15 Arformoterol Tartrate [Brovana] 15 mcg NEB BIDRESP #60 vial.neb 08/31/20 Omeprazole [Prilosec] 40 mg PO DAILY 09/03/20 levoFLOXacin [Levaquin*] 750 mg PO DAILY #5 tab 09/07/20 New Medications: levoFLOXacin [Levaquin*] 750 mg PO DAILY #5 tab Physician Discharge Instructions: Patient presented with dyspnea secondary to left lower lobe pneumonia complicated with COPD exacerbation. This was further complicated with toxic/ metabolic encephalopathy secondary to accidental overdose of medication. Patient had been taking high doses of Seroquel. This was discontinued during the course of her stay. Other medications were adjusted. This included Neurontin decreased from 600 mg 3 times a day to 300 mg 3 times a day. The patient has improved. Skilled placement was recommended but the patient declined. Patient would rather go home with home health. Patient understands that her medications needed to be adjusted due to increased sedation. Patient back to her baseline. Patient still requires oxygen at discharge. The patient will continue with home oxygen to maintain sats above 93%. Patient currently on 2 L per nasal cannula. At discharge she will continue with her COPD medication of Brovana 1 unit dose twice daily and albuterol/Atrovent 1 unit dose 3 times a day as needed for shortness of breath. For her pneumonia the patient will continue with Levaquin 750 mg daily for 5 more days. Recommend to recheck chest x-ray in 2 to 4 weeks to monitor resolution. Patient will continue with COPD education. Recommend follow-up with pulmonology in 1 week to follow-up this hospitalization. At discharge home health and physical therapy will be arranged. Recommend follow-up with PCP in 1 week to follow-up this hospitalization. Due to her toxic encephalopathy related to accidental overdose of medication, medications have been adjusted. Patient will no longer take Seroquel or methocarbamol. Patient has been taking Tylenol, Cymbalta, Neurontin and Xanax. Medications will need to be monitored closely. At discharge the patient will continue with Cymbalta 60 mg 1 pill daily. Neurontin will be decreased to 300 mg 1 pill 3 times a day. She is to hold this medication if with increase sedation. Patient may continue with Xanax 0.5 mg every 6 hours as needed for anxiety. Recommend to hold medication if with increase sedation. Patient may continue with Tylenol 3 up to 3 times a day as needed for pain. Patient with hyperlipidemia. At discharge she will continue with Lipitor 20 mg daily. Patient with hypothyroidism. At discharge patient will continue with levothyroxine 150 mcg daily. Patient with GERD. At discharge we will continue with Prilosec 40 mg daily. Diet: AHA Activity: Fall precautions Followup: NONE,NONE [Primary Care Provider] - Time spent managing pt's care (in minutes): 55
[2020-09-07] MEDS: ATORVASTATIN 20 MG TAB PO SCH (20:42)
[2020-09-07] MEDS: ALPRAZOLAM 0.5 MG TABLET PO PRN (20:42)
--- NOTE | 2020-09-08 06:06 | P.PN ---
Subjective Date of Service: 09/08/20 Primary Care Provider: Dr. Vallejo Chief Complaint: Pneumonia, altered mental status Subjective: Improving, Doing well Physical Examination - Vital Signs Temperature: 97.8 F Blood Pressure: 169/75 Pulse: 72 Respirations: 18 Pulse Ox (%): 93 - Studies Microbiology Data (last 24 hrs): 09/02/20 15:52 Blood - Blood Aerobic Blood Culture - Final No growth in 5 days. 09/02/20 15:52 Blood - Blood Anaerobic Blood Culture - Final No growth in 5 days. 09/02/20 15:25 Blood - Blood Aerobic Blood Culture - Final No growth in 5 days. 09/02/20 15:25 Blood - Blood Anaerobic Blood Culture - Final No growth in 5 days. Assessment & Plan Discharge Plan: Other (custodial facility) Plan to discharge in: 24 Hours Physician Review Additional Text: CXR: COMPARISON: Chest Single View dated 08/30/2020; Chest Single View dated 08/28/2020; Chest Pa And Lat (2 Views) dated 09/02/2015; Chest Pa And Lat (2 Views) dated 08/02/2015 FINDINGS: Similar to mild worsening in the left basilar airspace disease. The heart size is within normal limits.No acute osseous abnormality. No significant pleural effusions or pneumothorax. IMPRESSION: Similar to mild increased airspace disease at the left lung base which remains concerning for pneumonia. CT Head: COMPARISON: Head C Spine Mpr Wo Con dated 08/01/2015 TECHNIQUE: Axial 5 mm thick images of the head were obtained. Axial 2 mm thick images of the cervical spine were obtained with sagittal and coronal reconstruction images generated and reviewed. All CT scans are performed using dose optimization technique as appropriate and may include automated exposure control or mA/KV adjustment according to patient size. FINDINGS: CT HEAD WITHOUT CONTRAST: No acute hemorrhage, hydrocephalus or extra-axial collection is identified.No areas of brain edema or midline shift. The paranasal sinuses and mastoids are clear.The calvarium is intact. CT CERVICAL SPINE WITHOUT CONTRAST: Multilevel cervical spondylosis with varying degrees of neural foraminal narrowing. There is trace retrolisthesis of C5 on C6 and C6 on C7. There is some motion artifact at C1-2 which mildly limits evaluation and simulates the appearance of a fracture.No prevertebral soft tissues swelling is identified. IMPRESSION: No acute intracranial abnormality. No fracture or traumatic malalignment of the cervical spine. ECHO: MEASUREMENTS (cm) DIASTOLIC (NORMALS) SYSTOLIC (NORMALS) IVSd 0.9 (0.6-1.2) LA Diam 23.3 (1.9-4.0) LVEF 63% LVIDd 4.0 (3.5-5.7) LVIDs 2.6 (2.0-3.5) %FS 34% LVPWd 1.0 (0.6-1.2) Ao Diam 2.3 (2.0-3.7) 2 DIMENSIONAL ASSESSMENT: RIGHT ATRIUM: NORMAL LEFT ATRIUM: NORMAL RIGHT VENTRICLE: NORMAL LEFT VENTRICLE: NORMAL TRICUSPID VALVE: MILD TRICUSPID REGURGITATION MITRAL VALVE: NORMAL PULMONIC VALVE: NORMAL AORTIC VALVE: NORMAL PERICARDIAL EFFUSION: NONE AORTIC ROOT: NORMAL LEFT VENTRICULAR WALL MOTION: NORMAL DOPPLER/COLOR FLOW: SEE BELOW COMMENTS: NORMAL LEFT VENTRICULAR EJECTION FRACTION 55-60%. (POOR WINDOWS). MILD TRICUSPID REGURGITATION. Carotid doppler: COMPARISON: Head C Spine Mpr Wo Con dated 09/02/2020 TECHNIQUE: Real-time sonographic evaluation of bilateral carotid and vertebral systems was performed. Granados scale and Doppler interrogation were performed with waveform tracing bilaterally. FINDINGS: Normal high resistance waveforms are noted in both external carotid arteries. The common carotid arteries and internal carotid arteries show normal low resistance waveforms. No significant plaque formation is seen. Peak systolic and end diastolic velocity values and the ICA/CCA ratios are in the non-hemodynamically significant range. Antegrade flow seen in both vertebral arteries. Velocity values and ratios were recorded and are retained in the patient's imaging records. IMPRESSION: No significant atherosclerotic changes noted. No evidence of a hemodynamically significant stenosis. Follow up CXR: COMPARISON: September 03, 2020 FINDINGS: Left lower lobe consolidation without significant change. Right lung appears clear of acute infiltrate. Heart is normal size IMPRESSION: Stable left lower lobe consolidation presumably pneumonia. This should be followed until it has cleared to help exclude a post obstructive pro cess/underlying mass Physical Exam: General: Awake and alert; AAO x 3 Respiratory: Clear bilaterally, currently on room air Cardiovascular: Regular rate/rhythm, Normal S1 S2 Gastrointestinal: Normal bowel sounds, Soft and benign, Non-distended Musculoskeletal: No clubbing, No swelling Integumentary: No rashes Neurological: Normal tone, Sensation intact, Cranial nerves 3-12 intact Impression: Left Lower Lobe Pneumonia COPD exacerbation AMS secondary to accidental overdose of medication Depression with anxiety Plan: Continue with plan of care as mentioned below 1. Hep-Lock IV 2. Patient desires to go SNF. Continue with current medication at this time. Overall stable. Currently on room air. 3. Patient back to her baseline.. 4. Continue with COPD medication 5. Continue with antibiotic. 6. Arrange for skilled placement. Advance care [id number] minutes: Patient has decided to go to skilled placement. Social work to help in this process. DVT prophylaxis: Lovenox CODE STATUS: Full code Time Spent Managing Pts Care (In Minutes): 55
[2020-09-08] MEDS: ARFORMOTEROL TARTRATE 15 MCG/2 ML VIAL.NEB NEB SCH ×2 (07:57→19:55)
[2020-09-08] MEDS: ENOXAPARIN 40 MG/0.4 ML SQ SCH (08:54)
[2020-09-08] MEDS: PANTOPRAZOLE 40MG TABLET PO SCH (08:55)
[2020-09-08] MEDS: MONTELUKAST 10 MG TAB PO SCH (08:55)
[2020-09-08] MEDS: levoFLOXacin 500 MG TAB PO SCH (08:55)
[2020-09-08] MEDS: GABAPENTIN 300 MG CAP PO SCH ×3 (08:55→21:08)
[2020-09-08] MEDS: DULOXETINE 30 MG CAP PO SCH (08:55)
[2020-09-08] MEDS: LEVOTHYROXINE SOD 0.075 MG TAB PO SCH (08:55)
[2020-09-08] MEDS: CODEINE 30MG/APAP 300MG TAB PO PRN ×2 (08:59→22:48)
[2020-09-08 10:16] VITALS: O2SAT 90
[2020-09-08] MEDS: ATORVASTATIN 20 MG TAB PO SCH (21:08)
[2020-09-08] MEDS: ALPRAZOLAM 0.5 MG TABLET PO PRN (21:08)
--- NOTE | 2020-09-09 05:58 | P.PN ---
Subjective Date of Service: 09/09/20 Primary Care Provider: Dr. Vallejo Chief Complaint: Pneumonia, altered mental status Subjective: Improving, Doing well Physical Examination - Vital Signs Temperature: 98.0 F Blood Pressure: 175/75 Pulse: 70 Respirations: 18 Pulse Ox (%): 93 Assessment & Plan Discharge Plan: Other (residential facility) Plan to discharge in: 24 Hours Physician Review Additional Text: CXR: COMPARISON: Chest Single View dated 08/30/2020; Chest Single View dated 08/28/2020; Chest Pa And Lat (2 Views) dated 09/02/2015; Chest Pa And Lat (2 Views) dated 08/02/2015 FINDINGS: Similar to mild worsening in the left basilar airspace disease. The heart size is within normal limits.No acute osseous abnormality. No significant pleural effusions or pneumothorax. IMPRESSION: Similar to mild increased airspace disease at the left lung base which remains concerning for pneumonia. CT Head: COMPARISON: Head C Spine Mpr Wo Con dated 08/01/2015 TECHNIQUE: Axial 5 mm thick images of the head were obtained. Axial 2 mm thick images of the cervical spine were obtained with sagittal and coronal reconstruction images generated and reviewed. All CT scans are performed using dose optimization technique as appropriate and may include automated exposure control or mA/KV adjustment according to patient size. FINDINGS: CT HEAD WITHOUT CONTRAST: No acute hemorrhage, hydrocephalus or extra-axial collection is identified.No areas of brain edema or midline shift. The paranasal sinuses and mastoids are clear.The calvarium is intact. CT CERVICAL SPINE WITHOUT CONTRAST: Multilevel cervical spondylosis with varying degrees of neural foraminal narrowing. There is trace retrolisthesis of C5 on C6 and C6 on C7. There is some motion artifact at C1-2 which mildly limits evaluation and simulates the appearance of a fracture.No prevertebral soft tissues swelling is identified. IMPRESSION: No acute intracranial abnormality. No fracture or traumatic malalignment of the cervical spine. ECHO: MEASUREMENTS (cm) DIASTOLIC (NORMALS) SYSTOLIC (NORMALS) IVSd 0.9 (0.6-1.2) LA Diam 23.3 (1.9-4.0) LVEF 63% LVIDd 4.0 (3.5-5.7) LVIDs 2.6 (2.0-3.5) %FS 34% LVPWd 1.0 (0.6-1.2) Ao Diam 2.3 (2.0-3.7) 2 DIMENSIONAL ASSESSMENT: RIGHT ATRIUM: NORMAL LEFT ATRIUM: NORMAL RIGHT VENTRICLE: NORMAL LEFT VENTRICLE: NORMAL TRICUSPID VALVE: MILD TRICUSPID REGURGITATION MITRAL VALVE: NORMAL PULMONIC VALVE: NORMAL AORTIC VALVE: NORMAL PERICARDIAL EFFUSION: NONE AORTIC ROOT: NORMAL LEFT VENTRICULAR WALL MOTION: NORMAL DOPPLER/COLOR FLOW: SEE BELOW COMMENTS: NORMAL LEFT VENTRICULAR EJECTION FRACTION 55-60%. (POOR WINDOWS). MILD TRICUSPID REGURGITATION. Carotid doppler: COMPARISON: Head C Spine Mpr Wo Con dated 09/02/2020 TECHNIQUE: Real-time sonographic evaluation of bilateral carotid and vertebral systems was performed. Granados scale and Doppler interrogation were performed with waveform tracing bilaterally. FINDINGS: Normal high resistance waveforms are noted in both external carotid arteries. The common carotid arteries and internal carotid arteries show normal low resistance waveforms. No significant plaque formation is seen. Peak systolic and end diastolic velocity values and the ICA/CCA ratios are in the non-hemodynamically significant range. Antegrade flow seen in both vertebral arteries. Velocity values and ratios were recorded and are retained in the patient's imaging records. IMPRESSION: No significant atherosclerotic changes noted. No evidence of a hemodynamically significant stenosis. Follow up CXR: COMPARISON: September 03, 2020 FINDINGS: Left lower lobe consolidation without significant change. Right lung appears clear of acute infiltrate. Heart is normal size IMPRESSION: Stable left lower lobe consolidation presumably pneumonia. This should be followed until it has cleared to help exclude a post obstructive process/underlying mass Physical Exam: General: Awake and alert; AAO x 3 Respiratory: Clear bilaterally, currently on room air Cardiovascular: Regular rate/rhythm, Normal S1 S2 Gastrointestinal: Normal bowel sounds, Soft and benign, Non-distended Musculoskeletal: No clubbing, No swelling Integumentary: No rashes Neurological: Normal tone, Sensation intact, Cranial nerves 3-12 intact Impression: Left Lower Lobe Pneumonia COPD exacerbation AMS secondary to accidental overdose of medication Depression with anxiety Plan: Continue with plan of care as mentioned below 1. Hep-Lock IV 2. Patient desires to go SNF. Continue with current medication at this time. Overall stable. Currently on room air. 3. Patient back to her baseline.. 4. Continue with COPD medication 5. Continue with antibiotic. 6. Awaiting approval for skilled placement Advance care [id number] minutes: Patient has decided to go to skilled placement. Social work to help in this process. DVT prophylaxis: Lovenox CODE STATUS: Full code Time Spent Managing Pts Care (In Minutes): 55
[2020-09-09] MEDS: ARFORMOTEROL TARTRATE 15 MCG/2 ML VIAL.NEB NEB SCH (08:15)
[2020-09-09] MEDS: ENOXAPARIN 40 MG/0.4 ML SQ SCH (09:00)
[2020-09-09] MEDS: LEVOTHYROXINE SOD 0.075 MG TAB PO SCH (09:07)
[2020-09-09] MEDS: levoFLOXacin 500 MG TAB PO SCH (09:07)
[2020-09-09] MEDS: DULOXETINE 30 MG CAP PO SCH (09:08)
[2020-09-09] MEDS: MONTELUKAST 10 MG TAB PO SCH (09:08)
[2020-09-09] MEDS: GABAPENTIN 300 MG CAP PO SCH ×2 (09:09→14:40)
[2020-09-09] MEDS: CODEINE 30MG/APAP 300MG TAB PO PRN (09:09)
[2020-09-09] MEDS: PANTOPRAZOLE 40MG TABLET PO SCH (09:09)
[2020-09-09] MEDS ORDERED: ONDANSETRON 4 MG (ODT) TAB PO PRN (12:33)
--- NOTE | 2020-09-09 14:38 | P.DS ---
Admission Date: 09/02/20 Discharge Date: 09/09/20 Primary Care Provider: Dr. Vallejo Disposition: TRANSFER TO LONGTERM Discharge Condition: GOOD Reason for Admission: Pneumonia, altered mental status Consultations: Pulmonary-Dr. Arriaga Neurology-Dr. Salazar Procedures: COVID: Negative CXR: COMPARISON: Chest Single View dated 08/30/2020; Chest Single View dated 08/28/2020; Chest Pa And Lat (2 Views) dated 09/02/2015; Chest Pa And Lat (2 Views) dated 08/02/2015 FINDINGS: Similar to mild worsening in the left basilar airspace disease. The heart size is within normal limits.No acute osseous abnormality. No significant pleural effusions or pneumothorax. IMPRESSION: Similar to mild increased airspace disease at the left lung base which remains concerning for pneumonia. CT Head: COMPARISON: Head C Spine Mpr Wo Con dated 08/01/2015 TECHNIQUE: Axial 5 mm thick images of the head were obtained. Axial 2 mm thick images of the cervical spine were obtained with sagittal and coronal reconstruction images generated and reviewed. All CT scans are performed using dose optimization technique as appropriate and may include automated exposure control or mA/KV adjustment according to patient size. FINDINGS: CT HEAD WITHOUT CONTRAST: No acute hemorrhage, hydrocephalus or extra-axial collection is identified.No areas of brain edema or midline shift. The paranasal sinuses and mastoids are clear.The calvarium is intact. CT CERVICAL SPINE WITHOUT CONTRAST: Multilevel cervical spondylosis with varying degrees of neural foraminal narrowing. There is trace retrolisthesis of C5 on C6 and C6 on C7. There is some motion artifact at C1-2 which mildly limits evaluation and simulates the appearance of a fracture.No prevertebral soft tissues swelling is identified. IMPRESSION: No acute intracranial abnormality. No fracture or traumatic malalignment of the cervical spine. ECHO: MEASUREMENTS (cm) DIASTOLIC (NORMALS) SYSTOLIC (NORMALS) IVSd 0.9 (0.6-1.2) LA Diam 23.3 (1.9-4.0) LVEF 63% LVIDd 4.0 (3.5-5.7) LVIDs 2.6 (2.0-3.5) %FS 34% LVPWd 1.0 (0.6-1.2) Ao Diam 2.3 (2.0-3.7) 2 DIMENSIONAL ASSESSMENT: RIGHT ATRIUM: NORMAL LEFT ATRIUM: NORMAL RIGHT VENTRICLE: NORMAL LEFT VENTRICLE: NORMAL TRICUSPID VALVE: MILD TRICUSPID REGURGITATION MITRAL VALVE: NORMAL PULMONIC VALVE: NORMAL AORTIC VALVE: NORMAL PERICARDIAL EFFUSION: NONE AORTIC ROOT: NORMAL LEFT VENTRICULAR WALL MOTION: NORMAL DOPPLER/COLOR FLOW: SEE BELOW COMMENTS: NORMAL LEFT VENTRICULAR EJECTION FRACTION 55-60%. (POOR WINDOWS). MILD TRICUSPID REGURGITATION. Carotid doppler: COMPARISON: Head C Spine Mpr Wo Con dated 09/02/2020 TECHNIQUE: Real-time sonographic evaluation of bilateral carotid and vertebral systems was performed. Granados scale and Doppler interrogation were performed with waveform tracing bilaterally. FINDINGS: Normal high resistance waveforms are noted in both external carotid arteries. The common carotid arteries and internal carotid arteries show normal low resistance waveforms. No significant plaque formation is seen. Peak systolic and end diastolic velocity values and the ICA/CCA ratios are in the non-hemodynamically significant range. Antegrade flow seen in both vertebral arteries. Velocity values and ratios were recorded and are retained in the patient's imaging records. IMPRESSION: No significant atherosclerotic changes noted. No evidence of a hemodynamically significant stenosis. Follow up CXR: COMPARISON: September 03, 2020 FINDINGS: Left lower lobe consolidation without significant change. Right lung appears clear of acute infiltrate. Heart is normal size IMPRESSION: Stable left lower lobe consolidation presumably pneumonia. This should be followed until it has cleared to help exclude a post obstructive pr ocess/underlying mass Medical problem list: Left Lower Lobe Pneumonia complicated with COPD exacerbation Toxic/metabolic encephalopathy secondary to accidental overdose of medication Depression with anxiety Hypothyroidism Hyperlipidemia Chronic pain Brief History of Present Illness: Brief History of Present Illness: 79-year-old female with history of hyperlipidemia, COPD, hypothyroidism presents emergency department for altered mental status. Patient with recent admission for left-sided pneumonia was treated with Zosyn and discharged a few days prior. Family reports at home patient has been very weak with multiple falls, not acting herself, not eating and drinking well. [id number] reports that last night patient was groaning all night, today when she went to check on her she found her laying on the floor groaning, patient currently nonverbal but groaning, will make eye contact but not s peaking. Not following any verbal commands at this time. Patient was evaluated in the emergency department CT head C-spine negative for any acute findings chest x-ray redemonstrates pneumonia similar to previous. Labs were significant for white blood cell count 29.4 procalcitonin 0.09 BNP 3121 ammonia 11 AST 90 ALT 252 alk phos 198, these are stable from previous. Patient with chronic Tylenol abuse/overdose which has been discontinued. Patient was previously treated with N-acetylcysteine. Urinalysis negative for signs of infection Covid test negative. UDS also negative, patient is prescribed long-term benzodiazepine therapy, there is a question of benzodiazepine withdrawal, patient was given Ativan 0.5 mg x 2 in the emergency department which did not seem to relieve symptoms. Patient was admitted for further evaluation and treatment. Hospital Course: Patient presented with dyspnea secondary to left lower lobe pneumonia complicated with COPD exacerbation. This was further complicated with toxic/metabolic encephalopathy secondary to accidental overdose of medication. Patient had been taking high doses of Seroquel. She was admitted for treatment. Patient did well during the course of her stay for treatment of her pneumonia. Her medications were reviewed and adjusted. Seroquel was discontinued. Her Neurontin decreased from 600 mg 3 times a day to 300 mg 3 times a day. Overall the patient has improved. Patient on room air. For her pneumonia the patient will continue with Levaquin 750 mg 1 pill daily for 3 more days. For her COPD the patient will continue with Brovana 1 unit dose twice daily and albuterol/Atrovent 1 unit dose 3 times a day as needed for shortness of breath. Recommend to recheck chest x-ray in 2 to 4 weeks to monitor resolution. Education on COPD provided. Recommend follow-up with pulmonology in 1 week to follow-up this hospitalization. Patient will be discharged to skilled facility to continue rehabilitation. Due to her toxic encephalopathy related to accidental overdose of her medication, medications have been adjusted. Patient will no longer take Seroquel or methocarbamol. Patient has been taking Tylenol, Cymbalta, Neurontin and Xanax currently without any difficulty. Medications will need to be monitored closely. At discharge the patient will continue with Cymbalta 60 mg 1 pill daily. Neurontin will be decreased to 300 mg 1 pill 3 times a day. She is to hold this medication if with increase sedation. Patient may continue with Xanax 0.5 mg every 6 hours as needed for anxiety. Recommend to hold medication if with increase sedation. Patient may continue with Tylenol 3 up to 3 times a day as needed for pain. Further monitoring of her medication will need to be monitored closely. Recommend to use a pillbox once she is finally discharged home. Will need to ensure safety in her medications. This can be further monitored and adjusted by her PCP. Patient with hyperlipidemia. At discharge she will continue with Lipitor 20 mg daily. Patient with hypothyroidism. At discharge patient will continue with levothyroxine 150 mcg daily. Patient with GERD. At discharge we will continue with Prilosec 40 mg daily. Vital Signs/Physical Exam: Temp Pulse Resp BP Pulse Ox 98.0 F 70 18 175/75 H 93 09/09/20 12:06 09/09/20 12:06 09/09/20 12:06 09/09/20 12:06 09/09/20 12:06 General: Alert, In no apparent distress, Oriented x3, Cooperative HEENT: Atraumatic Neck: Supple Respiratory: Clear to auscultation bilaterally, Normal air movement Cardiovascular: Normal pulses, Regular rate/rhythm Gastrointestinal: Normal bowel sounds, No tenderness, No masses, No rebound, No guarding Musculoskeletal: No erythema, No tenderness, No warmth Integumentary: No tenderness/swelling Neurological: Normal speech, Normal strength at 5/5 x4 extr, Normal tone, Normal affect Laboratory Data at Discharge: WBC 15.40 K/uL (4.3-10.9) H D 09/07/20 05:15 Hgb 12.9 g/dL (12.0-15.0) 09/07/20 05:15 Hct 40.0 % (36.0-45.0) 09/07/20 05:15 Plt Count 312 K/uL (152-406) 09/07/20 05:15 PT 14.9 SECONDS (9.5-12.5) H 09/02/20 15:50 INR 1.29 09/02/20 15:50 Sodium 141 mmol/L (136-145) 09/07/20 05:15 Potassium 4.1 mmol/L (3.5-5.1) 09/07/20 05:15 Potassium Cancelled 09/07/20 05:15 BUN 8 mg/dL (7-18) 09/07/20 05:15 Creatinine 0.55 mg/dL (0.55-1.3) 09/07/20 05:15 Glucose 80 mg/dL (74-106) 09/07/20 05:15 Magnesium 2.1 mg/dL (1.8-2.4) 09/07/20 05:15 Total Bilirubin 0.4 mg/dL (0.2-1.0) 09/06/20 05:33 AST 59 U/L (15-37) H 09/06/20 05:33 ALT 140 U/L (12-78) H 09/06/20 05:33 Alkaline Phosphatase 140 U/L (45-117) H 09/06/20 05:33 Home Medications: ALPRAZolam [Xanax*] 0.5 tab PO Q6H PRN 08/01/15 Atorvastatin Calcium [Lipitor*] 1 tab PO DAILY 08/01/15 Duloxetine [Cymbalta *] 60 mg PO DAILY 08/01/15 Montelukast [Singulair*] 1 tab PO DAILY 08/01/15 Levothyroxine Sodium 1 tab PO DAILY 08/02/15 Codeine/APAP [Tylenol #3*] 1 tab PO TID PRN #15 tab 08/04/15 Arformoterol Tartrate [Brovana] 15 mcg NEB BIDRESP #60 vial.neb 08/31/20 Omeprazole [Prilosec] 40 mg PO DAILY 09/03/20 Arformoterol Tartrate [Brovana] 2 ml NEB BIDRESP #60 vial.neb 09/07/20 Ipratropium Neb [Atrovent*] 2.5 ml NEB TID PRN #90 amp 09/07/20 Gabapentin 300 mg PO TID #30 capsule 09/09/20 levoFLOXacin [Levaquin] 750 mg PO DAILY #3 tab 09/09/20 New Medications: Ipratropium Neb [Atrovent*] 2.5 ml NEB TID PRN #90 amp PRN Reason: Wheezing Arformoterol Tartrate [Brovana] 2 ml NEB BIDRESP #60 vial.neb Gabapentin 300 mg PO TID #30 capsule levoFLOXacin [Levaquin] 750 mg PO DAILY #3 tab Physician Discharge Instructions: PROBLEM: Pneumonia, COPD GOAL: Clear understanding of disease process E-script sent to [facility] [place]. INSTRUCTIONS: Patient presented with dyspnea secondary to left lower lobe pneumonia complicated with COPD exacerbation. This was further complicated with toxic/metabolic encephalopathy secondary to accidental overdose of medication. Patient had been taking high doses of Seroquel. This was discontinued during the course of her stay. Other medications were adjusted. This included Neurontin decreased from 600 mg 3 times a day to 300 mg 3 times a day. The patient has improved. Skilled placement was recommended but the patient declined. Patient would rather go home with home health. Patient understands that her medications needed to be adjusted due to increased sedation. Patient back to her baseline. Patient still requires oxygen at discharge. The patient will continue with home oxygen to maintain sats above 93%. Patient currently on 2 L per nasal cannula. At discharge she will continue with her COPD medication of Brovana 1 unit dose twice daily and albuterol/Atrovent 1 unit dose 3 times a day as needed for shortness of breath. For her pneumonia the patient will continue with Levaquin 750 mg daily for 5 more days. Recommend to recheck chest x-ray in 2 to 4 weeks to monitor resolution. Patient will continue with COPD education. Recommend follow-up with pulmonology in 1 week to follow-up this hospitalization. At discharge home health and physical therapy will be arranged. Recommend follow-up with PCP in 1 week to follow-up this hospitaliz ation. Due to her toxic encephalopathy related to accidental overdose of medication, medications have been adjusted. Patient will no longer take Seroquel or methocarbamol. Patient has been taking Tylenol, Cymbalta, Neurontin and Xanax. Medications will need to be monitored closely. At discharge the patient will continue with Cymbalta 60 mg 1 pill daily. Neurontin will be decreased to 300 mg 1 pill 3 times a day. She is to hold this medication if with increase sedation. Patient may continue with Xanax 0.5 mg every 6 hours as needed for anxiety. Recommend to hold medication if with increase sedation. Patient may continue with Tylenol 3 up to 3 times a day as needed for pain. Patient with hyperlipidemia. At discharge she will continue with Lipitor 20 mg daily. Patient with hypothyroidism. At discharge patient will continue with levothyroxine 150 mcg daily. Patient with GERD. At discharge we will continue with Prilosec 40 mg daily. Diet: Heart healthy Activity: Fall precautions DME DME: Home oxygen Date Ordered: 09/07/20 Name of Company: [employer] Influenza Vaccine Indicated: Influenza Vaccine Given: Date Given: Pneumonia Vaccine Indicated: Pneumonia Vaccine Given: Date Given: Diet: AHA Activity: Fall precautions Followup: Blair Arriaga MD [ACTIVE - CAN ADMIT] - 1 Week (Follow up in office in 1 week. Call to schedule an appointment. ) Time spent managing pt's care (in minutes): 55
[2020-09-09 16:49] VITALS: BP 149/65; TEMP 97.5
== END 2020-09-09 18:29 | DRG 871 ==
LOC: ER 15:08 → ERHOLD 18:58 → 2ND 20:58
PROVIDERS: ADMIT Hospitalist; ATTEND Hospitalist
DX: A41.9 Sepsis, unspecified organism (principal); J18.9 Pneumonia, unspecified organism; G92 Toxic encephalopathy; J44.0 Chronic obstructive pulmonary disease with (acute) lower respiratory infection; J44.1 Chronic obstructive pulmonary disease with (acute) exacerbation; F15.93 Other stimulant use, unspecified with withdrawal; T39.1X1A Poisoning by 4-Aminophenol derivatives, accidental (unintentional), initial encounter; Y92.009 Unspecified place in unspecified non-institutional (private) residence as the place of occurrence of the external cause; F41.8 Other specified anxiety disorders; E03.9 Hypothyroidism, unspecified; E78.5 Hyperlipidemia, unspecified; G89.29 Other chronic pain; K21.9 Gastro-esophageal reflux disease without esophagitis; R94.5 Abnormal results of liver function studies; Z20.822 Contact with and (suspected) exposure to COVID-19
CPT/HCPCS: 36415; 51702; 70450; 71045; 72125; 80048; 80053; 80076; 80202; 80307; 80329; 81003; 81015; 82140; 82550; 82805; 83605; 83735; 83880; 84132; 84145; 84439; 84443; 84484; 85025; 85610; 87040; 93005; 93306; 93880; 94640; 96365; 96366; 96375; 97116; 97162; 97530; 99285; J0692; J1650; J2405; J3370; J3480; J7030; J7050; J7605; J7799; U0003